=== PATIENT | male | born 1990 | race Caucasian/White ===

== ENCOUNTER 2017-10-31 22:59 | Inpatient (IN) | payer MEDICAID, OTHER ==
[~2017-10-31] VITALS: Ht 188 cm; Wt 189.7 kg
[2017-11-01] VITALS (8 sets, daily range): BP systolic 113–140; BP diastolic 62–85; PULSE 90–100; RESP 17–25; TEMP 98.4; Ht 188 cm; Wt 189.7 kg
[2017-11-01] MEDS ORDERED: morphine 4 MG/ML VIAL IV STA (00:49)
[2017-11-01] MEDS ORDERED: ONDANSETRON 4 MG INJ IV STA (00:49)
[2017-11-01] MEDS ORDERED: SOD CHLORIDE 0.9% 1,000 ML IV STA (00:49)
[2017-11-01 01:27] LABS: ABNORMAL IP MESSAGE 1; BASOPHILS % 0.1 % (0.0-2.0); EOSINOPHILS % 0.1 % (0.0-7.0); HEMATOCRIT 25.4 % (42.0-52.0); LYMPHOCYTES % 15.7 % (15.0-51.0); MEAN CORPUSCULAR HEMOGLOBIN 17.7 pg (29.0-33.0); MEAN CORPUSCULAR HGB CONC 26.8 g/dl (32.0-37.0); MEAN PLATELET VOLUME 10.6 fl (7.4-10.4); MONOCYTE # 1.2 10^3/ul (0.3-0.9); MONOCYTES % 9.8 % (0.0-11.0); NEUTROPHIL # 9.4 10^3/ul (1.6-7.5); NEUTROPHILS % 73.8 % (39.0-77.0); NUCLEATED RED BLOOD CELLS # 0.2 10^3/ul (0.0-0.0); NUCLEATED RED BLOOD CELLS% 1.5 /100WBC (0.0-0.0); PLATELET COUNT 334 10^3/UL (140-415); POSITIVE DIFF @See below; RED BLOOD COUNT 3.85 10^6/ul (4.70-6.10); RED CELL DISTRIBUTION WIDTH 20.5 % (11.5-14.5); WHITE BLOOD COUNT 12.7 10^3/ul (4.8-10.8)
[2017-11-01 01:50] LABS: ALBUMIN/GLOBULIN RATIO 1.02; BILIRUBIN,INDIRECT 0.7 mg/dl (0-1.1); BILIRUBIN,TOTAL 0.7 mg/dl (0.2-1.3); CALCIUM 9.5 mg/dl (8.4-10.2); CREATININE 0.94 mg/dl (0.61-1.24); POTASSIUM 4.1 mmol/L (3.5-5.1); TOTAL PROTEIN 7.9 g/dl (6.1-8.1)
[2017-11-01 02:02] LABS: HEMOGLOBIN 6.8 g/dl (14.0-18.0)
[2017-11-01 02:03] LABS: PATH REVIEW? YES
[2017-11-01] MEDS ORDERED: HYDROmorphONE 1 MG/ML SYG IV STA (03:30)
--- NOTE | 2017-11-01 03:36 | RADRPT ---
PROCEDURE: CT of the abdomen and pelvis without contrast CLINICAL INDICATION: Abdominal pain. TECHNIQUE: Spiral CT images through the abdomen and pelvis without the use of oral and without the use of intravenous contrast. The administered radiation dose is CTDI 23.85 and DLP 1775.21. One or more of the following dose reduction techniques were used: automated exposure control, adjustment o f the mA and/or kV according to patient size, or use of iterative reconstruction technique. DICOM im ages are available. COMPARISON: None FINDINGS: The study is limited by lack of intravenous contrast. Lower thorax: Slight dependent atalectasis of the lung bases is seen.. Liver: The liver is enlarged, measuring 24 cm in length. There is diffuse hepatic steatosis.. Biliary: Probable vicarious contrast excretion into the gallbladder. No definite radiopaque stones.. . No biliary ductal dilatation is seen. Pancreas: Unremarkable. No focal mass or inflammatory process. Spleen: The spleen is unremarkable in appearance Adrenal glands: Unremarkable in appearance. No focal nodule.. Genitourinary: No hydronephrosis or renal calculi are seen.. Contrast material is seen in the urinar y bladder, presumably from an outside study. No prior studies from this institution are seen.. Gastrointestinal Tract: There is no evidence for bowel obstruction, free air, or abscess. The appen melvi is likely surgically absent. Suture line is seen in the medial cecum.. Lymph nodes: No adenopathy is seen... Vascular structures: The aorta and mesenteric vessels are unremarkable.. Peritoneal cavity: Unremarkable mesentery and peritoneum.. No mass, edema, or ascites. Reproductive Organs: Unremarkable in appearance.. Musculoskeletal: Minimal endplate irregularities.. IMPRESSION: Hepatomegaly with diffuse hepatic steatosis. Probable vicarious contrast excretion into the gallbladder and residual contrast in the urinary blad flavio presumably from an outside study.. RPTAT: HLBE Physician Ulices Date Time Electronically viewed and signed by Physician Ulices on 11/01/2017 03:36 LE/
[2017-11-01] MEDS ORDERED: PANTOPRAZOLE 40 MG INJ IV ONE (04:00)
[2017-11-01 04:04] LABS: ANISOCYTOSIS 3+ (0-0); EOSINOPHILS % (M) 1 % (0-7); ERYTHROBLAST% (NRBC) (M) 3 % (0-0); GIANT THROMBO% (M) 6 % (0-0); HYPOCHROMASIA 2+ (0-0); MICROCYTOSIS 3+ (0-0); MONOCYTES % (M) 6 % (0-11); MYELOCYTES % (M) 1 % (0-0); OVALOCYTES 1+ (0-0); PLATELET ESTIMATE NORMAL; POIKILOCYTOSIS 2+ (0-0); POLYCHROMASIA 3+ (0-0); PROMYELOCYTES #M 0.6 10^3/ul (0-0); PROMYELOCYTES % (M) 5 % (0-0); STOMATOCYTES 1+ (0-0)
--- NOTE | 2017-11-01 05:35 | ERD ---
ER Documentation Chief Complaint Chief Complaint LUQ pain x1day. +n/v. heavy drinker. +SOB HPI This is 25 mL left lower quadrant pain for 1 day. He has had nausea and vomiting. 4-5 episodes of vomiting nonbilious nonbloody. Patient was a seen at [facility] earlier today and discharged home. Patient admits to drinking alcohol. Denies any fevers or chills. Denies any other current issues. ROS All systems reviewed and are negative except as per history of present illness. Allergies Allergies: Coded Allergies: No Known Allergy (Unverified , 10/31/17) PMhx/Soc Medical and Surgical Hx: pt denies Surgical Hx History of Surgery: No Anesthesia Reaction: No Hx Neurological Disorder: No Hx Respiratory Disorders: No Hx Cardiac Disorders: No Hx Psychiatric Problems: No Hx Miscellaneous Medical Probl: No Hx Alcohol Use: Yes (HEAVY) Hx Substance Use: Yes (POT) Hx Tobacco Use: No Smoking Status: Current every day smoker Physical Exam Vitals Vital Signs Date Time Temp Pulse Resp B/P Pulse Ox O2 Delivery O2 Flow Rate FiO2 11/01/17 03:43 97.8 82 22 145/60 100 Nasal Cannula 2.0 11/01/17 00:47 97.9 70 24 160/84 100 Room Air 10/31/17 23:30 97.9 117 24 155/98 99 Physical Exam Const: [] Head: Atraumatic Eyes: Normal Conjunctiva ENT: Normal External Ears, Nose and Mouth. Neck: Full range of motion..~ No meningismus. Resp: Clear to auscultation bilaterally Cardio: Regular rate and rhythm, no murmurs Abd: Soft, non tender, non distended. Normal bowel sounds Skin: No petechiae or rashes Back: No midline or flank tenderness Ext: No cyanosis, or edema Neur: Awake and alert Psych: Normal Mood and Affect Result Diagram: 11/01/17 01011/01/17 0100 Results 24 hrs Laboratory Tests Test 11/01/17 01:00 White Blood Count 12.710^3/ul Red Blood Count 3.8510^6/ul Hemoglobin 6.8g/dl Hematocrit 25.4% Mean Corpuscular Volume 66.0fl Mean Corpuscular Hemoglobin 17.7pg Mean Corpuscular Hemoglobin Concent 26.8g/dl Red Cell Distribution Width 20.5% Platelet Count 51229^3/UL Mean Platelet Volume 10.6fl Neutrophils % 73.8% Segmented Neutrophils % (Manual) 74% Lymphocytes % 15.7% Lymphocytes % (Manual) 13% Monocytes % 9.8% Monocytes % (Manual) 6% Eosinophils % 0.1% Eosinophils % (Manual) 1% Basophils % 0.1% Myelocytes % (Manual) 1% Promyelocytes % (Manual) 5% Nucleated Red Blood Cells % 3% Neutrophils # 9.410^3/ul Absolute Lymphocytes (Manual) 1.610^3/ul Lymphocytes # 2.010^3/ul Monocytes # 1.210^3/ul Absolute Monocytes (Manual) 0.710^3/ul Eosinophils # 0.010^3/ul Basophils # 0.010^3/ul Myelocytes # 0.110^3/ul Promyelocytes # 0.610^3/ul Nucleated Red Blood Cells # 0.210^3/ul Pathologist Review (Hematology) YES Platelet Estimate NORMAL Giant Platelets 6% Polychromasia 3+ Hypochromasia 2+ Poikilocytosis 2+ Anisocytosis 3+ Microcytosis 3+ Ovalocytes 1+ Stomatocytes 1+ Sodium Level 141mmol/L Potassium Level 4.1mmol/L Chloride Level 103mmol/L Carbon Dioxide Level 29mmol/L Anion Gap 13 Blood Urea Nitrogen 12mg/dl Creatinine 0.94mg/dl Glucose Level 137mg/dl Calcium Level 9.5mg/dl Total Bilirubin 0.7mg/dl Direct Bilirubin 0.00mg/dl Indirect Bilirubin 0.7mg/dl Aspartate Amino Transf (AST/SGOT) 54IU/L Alanine Aminotransferase (ALT/SGPT) 70IU/L Alkaline Phosphatase 120IU/L Total Protein 7.9g/dl Albumin 4.0g/dl Globulin 3.90g/dl Albumin/Globulin Ratio 1.02 Lipase 129U/L Current Medications Medications (Trade) Dose Ordered Sig/Lorelei Route PRN Reason Start Time Stop Time Status Last Admin Dose Admin Sodium Chloride (NS) 1,000 ml @ 1,000 mls/hr Q1H STAT IV 11/01/17 00:49 11/01/17 01:48 DC 11/01/17 00:55 Morphine Sulfate (morphine) 4 mg ONCE STAT IV 11/01/17 00:49 11/01/17 00:50 DC 11/01/17 00:56 Ondansetron HCl (Zofran Inj) 4 mg ONCE STAT IV 11/01/17 00:49 11/01/17 00:50 DC 11/01/17 00:55 Hydromorphone HCl (Dilaudid) 1 mg ONCE STAT IV 11/01/17 03:30 11/01/17 03:31 DC 11/01/17 03:36 Pantoprazole (Protonix Iv) 40 mg ONCE ONCE IV 11/01/17 04:00 11/01/17 04:01 DC 11/01/17 03:48 Procedures/MDM Medical decision-makin-year-old male with a low hemoglobin history chronic alcoholism. At this point the patient will be transfused and admitted for further evaluation and management. Spoke to Dr. camacho, exam the patient is service. Departure Diagnosis: Primary Impression: Anemia Anemia type: unspecified type Qualified Code: D64.9 - Anemia, unspecified type Condition: Serious LEANDER OKEEFE Nov 01, 2017 05:35
[2017-11-01] MEDS ORDERED: ALBUTEROL/IPRATROPIUM (NEB) 3 ML AMP HHN PRN (06:00)
[2017-11-01] MEDS ORDERED: NACL 0.9% 3 ML SYG IV SCH (06:00)
[2017-11-01] MEDS: morphine 2 MG INJ IV PRN ×4 (08:29→20:17)
[2017-11-01] MEDS: ONDANSETRON 4 MG INJ IV PRN ×2 (08:29→20:22)
[2017-11-01] MEDS: PANTOPRAZOLE 40 MG INJ IV SCH ×2 (08:29→20:17)
--- NOTE | 2017-11-01 09:36 | HP ---
Date/Time of Note Date/Time of Note DATE: 11/01/17 TIME: 09:31 Assessment/Plan VTE Prophylaxis VTE Prophylaxis Intervention: SCD's Assessment/Plan Assessment/Plan 1. Severe anemia, from diuretic effect of alcohol versus the resulting liver disease -Transfuse PRBCs -GI consult -Iron panel, ferritin and FOBT 2. History of alcohol abuse -Abstinence from alcohol is reinforced 3. Obesity, with a BMI of greater than 50 -Weight reduction advised HPI/ROS Admit Date/Time Admit Date/Time Nov 01, 2017 at 03:43 Hx of Present Illness This is a 27-year-old obese male with a history of alcohol abuse who presented to the ER complaining of abdominal pain and vomiting. Patient has been drinking heavily almost on a daily basis and for the past few days has been having a progressively worsening diffuse abdominal pain and vomiting, described as nonbloody nonbilious emesis. When he presented to the ER, he was found to be anemic with a hemoglobin of 6.8. Rest of the labs show a WBC of 12.7, AST 54, ALT 70. CT abdomen/pelvis showed fatty liver. PMH/Family/Social Social History Smoking Status: Current every day smoker Exam/Review of Systems Vital Signs Vitals Vital Signs Date Time Temp Pulse Resp B/P Pulse Ox O2 Delivery O2 Flow Rate FiO2 11/01/17 08:06 97.7 88 20 127/67 98 11/01/17 05:58 Nasal Cannula 2.0 Exam Constitutional: alert, distress, oriented, other (Obese) Head: atraumatic, normocephalic Eyes: EOMI, PERRL Respiratory: clear to auscultation, normal air movement Cardiovascular: nl pulses, regular rate and rhythm Gastrointestinal: soft, tender Extremities: normal pulses Labs Result Diagram: 11/01/179911/01/1799 Medications Medications Current Medications Ondansetron HCl (Zofran Inj) 4 mg Q6H PRN IV NAUSEA AND/OR VOMITING Last administered on 11/01/17 08:29; Admin Dose 4 MG; Start 11/01/17 at 06:00 Acetaminophen (Tylenol Tab) 650 mg Q6H PRN PO PAIN LEVEL 1-3 OR FEVER; Start 11/01/17 at 06:00 Morphine Sulfate (morphine) 2 mg Q4H PRN IV SEVERE PAIN LEVEL 7-10 Last administered on 11/01/17 08:29; Admin Dose 2 MG; Start 11/01/17 at 06:00 Pantoprazole (Protonix Iv) 40 mg Q12 IV Last administered on 11/01/17 08:29; Admin Dose 40 MG; Start 11/01/17 at 09:00 LEANDER CRUZ MD Nov 01, 2017 09:36
[2017-11-01 09:57] LABS: HEMATOCRIT 23.4 % (42.0-52.0)
[2017-11-01 10:01] LABS: HEMOGLOBIN 6.5 g/dl (14.0-18.0)
[2017-11-01 10:15] LABS: IRON 14 ug/dl (35-150)
[2017-11-01 10:27] LABS: TOTAL IRON BINDING CAPACITY 440 ug/dl (241-421)
--- NOTE | 2017-11-01 11:40 | QN ---
Documentation Comment Examined patient at bedside. Patient denied any hematemesis, hematochezia, melena, hemoptysis or hematuria. He reported having nausea and vomiting prior to admission and was nonbilious and nonbloody. Patient continued to have left upper quadrant abdominal pain. He reported no association with eating. Currently he is getting transfused 2 units. We are going to order serial H&H every 12 hours. Patient with low iron and will treat with IV iron replacement. We will also request gastroenterology consultation as patient could benefit from endoscopic evaluation. Patient will be continued on empiric PPI regimen. If GI workup negative for acute anemia, will stabilize hemoglobin with blood transfusion and iron replacement and will refer patient for outpatient hematology eval for further anemia workup. Plan of care updated with the patient and he is in agreement with the current plan. Patient was seen in collaboration with . HECTOR BETH NP Nov 01, 2017 11:40
[2017-11-01] MEDS ORDERED: HYDROCODONE/APAP (5/325) TAB PO ONE (12:00)
--- NOTE | 2017-11-01 12:22 | CONS ---
Date/Time of Note Date/Time of Note DATE: 11/01/17 TIME: 12:03 Assessment/Plan Assessment/Plan Chief Complaint/Hosp Course :Summary Assessment and Plan: Assessment: Severe TODD anemia History of alcohol abuse Obesity Plan: Iron panel, ferritin and FOBT-ordered EGD today Keep npo Endoscopy - risks/benefits/alternatives/indications of procedure and sedation/ anesthesia discussed with patient who states understading and gives informed consent to proceed. PARQ held and questions were answered.] Patient seen in collaboration with Dr. Tai Problems: Consultation Date/Type/Reason Admit Date/Time Nov 01, 2017 at 03:43 Date of Consultation: Nov 01, 2017 Type of Consultation: GI Reason for Consultation Severe anemia Hx of Present Illness This is a 27-year-old male with past medical history of alcohol abuse (drinks x3 25oz beer daily) and obesity, presenting to the ER with weakness vomiting, and abd pain. Initial evaluation hemoglobin found to be 6.8, MCV 66, MCH 17.7, WBCs 12.7, creatinine 0.94, lipase 129, AST 54, ALT 70. CT abdomen pelvis was obtained showing hepatomegaly with diffuse hepatic steatosis, and probable vicarious contrast excretion into the gallbladder and residual contrast in the urinary bladder presumably from an outside study. He does note he went to [facility] yesterday and was released. 4 months ago patient was seen at [facility] for "not feeling well" EGD and colonoscopy were completed at that time, per patient both negative, however, patient does not seem reliable source in regards to results of previous tests. He currently denies any nausea/vomiting, hematemesis, hematochezia, change in bowel habits, dysphagia, or pyrosis. Patient does complain of left upper quadrant pain described as an ache mild to moderate in nature. Iron studies show iron deficiency anemia, stool for OB has been ordered currently pending. With current presentation we will plan for EGD today, patient is to remain n.p.o., plan discussed with patient who is in agreement. Patient has not eaten since 8: 30 am. Past Medical History Medical History: other (Obesity, EtOH abuse) Past Surgical History Past Surgical Hx: appendectomy Social History Alcohol Use: heavy Drug Use: marijuana Exam/Review of Systems Vital Signs Vitals Vital Signs Date Time Temp Pulse Resp B/P Pulse Ox O2 Delivery O2 Flow Rate FiO2 11/01/17 08:06 97.7 88 20 127/67 98 11/01/17 05:58 Nasal Cannula 2.0 Exam PHYSICAL EXAMINATION: GENERAL: Well developed, well nourished, alert & oriented x 3, in no acute distress SKIN: No lesions, no stigmata chronic liver disease, no evidence of bleeding diathesis LYMPHATIC: No palpable lymphadenopathy. HEAD: Normocephalic, atraumatic, no tenderness. EYES: Pupils equal reactive to light and accommodation, full extraocular movements, sclera clear, non-icteric, no discharge. EARS/NOSE AND THROAT: Ears normal, nose normal, oropharynx normal, oral membranes well hydrated without lesions. NECK: Supple, no masses, thyroid normal, JVP within normal limits, carotids normal without bruits. CHEST: Inspection within normal limits. CARDIOVASCULAR: Heart: Regular rate and rhythm, no murmurs, gallops or rubs. Peripheral pulses present within normal limits, no cyanosis, clubbing or edemas. No pulsatile abdominal mass RESPIRATORY: Lungs clear to auscultation and percussion, no wheezing, no rubs GASTROINTESTINAL AND LIVER: Abdomen: Soft, tenderness RUQ, obese, no hernias, no masses, no organomegaly, no ascites, no guarding, no rebound tenderness, normoactive bowel sounds. Rectal: Deferred. GENITOURINARY: Male genitalia within normal limits. EXTREMITIES: No cyanosis, clubbing or edema. Results Result Diagram: 11/01/17 0933 11/01/17 0100 Results 24 hrs Laboratory Tests Test 11/01/17 01:00 11/01/17 09:33 White Blood Count 12.7 H Red Blood Count 3.85 L Hemoglobin 6.8 *L 6.5 *L Hematocrit 25.4 L 23.4 L Mean Corpuscular Volume 66.0 L Mean Corpuscular Hemoglobin 17.7 L Mean Corpuscular Hemoglobin Concent 26.8 L Red Cell Distribution Width 20.5 H Platelet Count 334 Mean Platelet Volume 10.6 H Neutrophils % 73.8 Segmented Neutrophils % (Manual) 74 Lymphocytes % 15.7 Lymphocytes % (Manual) 13 L Monocytes % 9.8 Monocytes % (Manual) 6 Eosinophils % 0.1 Eosinophils % (Manual) 1 Basophils % 0.1 Myelocytes % (Manual) 1 H Promyelocytes % (Manual) 5 H Nucleated Red Blood Cells % 3 H Neutrophils # 9.4 H Absolute Lymphocytes (Manual) 1.6 Lymphocytes # 2.0 Monocytes # 1.2 H Absolute Monocytes (Manual) 0.7 Eosinophils # 0.0 Basophils # 0.0 Myelocytes # 0.1 H Promyelocytes # 0.6 H Nucleated Red Blood Cells # 0.2 H Pathologist Review (Hematology) YES Platelet Estimate NORMAL Giant Platelets 6 H Polychromasia 3+ Hypochromasia 2+ Poikilocytosis 2+ Anisocytosis 3+ Microcytosis 3+ Ovalocytes 1+ Stomatocytes 1+ Sodium Level 141 Potassium Level 4.1 Chloride Level 103 Carbon Dioxide Level 29 Anion Gap 13 Blood Urea Nitrogen 12 Creatinine 0.94 Glucose Level 137 Calcium Level 9.5 Total Bilirubin 0.7 Direct Bilirubin 0.00 Indirect Bilirubin 0.7 Aspartate Amino Transf (AST/SGOT) 54 H Alanine Aminotransferase (ALT/SGPT) 70 H Alkaline Phosphatase 120 Total Protein 7.9 Albumin 4.0 Globulin 3.90 H Albumin/Globulin Ratio 1.02 Lipase 129 Iron Level 14 L Total Iron Binding Capacity 440 H Percent Iron Saturation 3 L Ferritin 4.4 L Medications Medications Current Medications Ondansetron HCl (Zofran Inj) 4 mg Q6H PRN IV NAUSEA AND/OR VOMITING Last administered on 11/01/17 08:29; Admin Dose 4 MG; Start 11/01/17 at 06:00 Acetaminophen (Tylenol Tab) 650 mg Q6H PRN PO PAIN LEVEL 1-3 OR FEVER; Start 11/01/17 at 06:00 Morphine Sulfate (morphine) 2 mg Q4H PRN IV SEVERE PAIN LEVEL 7-10 Last administered on 11/01/17 08:29; Admin Dose 2 MG; Start 11/01/17 at 06:00 Pantoprazole (Protonix Iv) 40 mg Q12 IV Last administered on 11/01/17 08:29; Admin Dose 40 MG; Start 11/01/17 at 09:00 Influenza Virus Vaccine 0.5 ml 0.5 ml ONCE ONCE IM* ; Start 11/01/17 at 14:00; Stop 11/01/17 at 14:01 Ferric Sodium Gluconate Complex/ Sodium Chloride (Ferrlecit/NS) 110 ml @ 110 mls/hr Q24H IVPB ; Start 11/01/17 at 12:30; Stop 11/05/17 at 13:29 Copies To: CC: TORRI TAI MD, VICTORIA Nov 01, 2017 12:13
[2017-11-01] MEDS: SOD FERRIC GLUC COMPLX 125 MG in SOD CHLORIDE 0.9% 100 ML IVPB SCH (13:53)
[2017-11-01] MEDS ORDERED: INFLUENZA VIRUS VACCINE 0.5 ML SYG IM* ONE (14:00)
--- NOTE | 2017-11-01 15:43 | RADRPT ---
PROCEDURE: KUB CLINICAL INDICATION: Abdominal pain TECHNIQUE: One-view COMPARISON: None . FINDINGS: Nonspecific bowel gas pattern with moderate stool seen in the rectosigmoid colon and distal descendi ng colon. No air-fluid levels noted. IMPRESSION: Nonspecific bowel gas pattern. RPTAT: AAOO Physician Rob Date Time Electronically viewed and signed by Howard Bo Physician on 11/01/2017 15:43 MB/
[2017-11-01 17:08] LABS: PATH REVIEW CH
--- NOTE | 2017-11-01 18:05 | HPN ---
Date/Time of Note Date/Time of Note DATE: 11/01/17 TIME: 18:05 Interval H&P Admission Note Pt. seen H&P reviewed: No system changes TORRI BURNHAM MD Nov 01, 2017 18:05
[2017-11-01] MEDS ORDERED: LIDOCAINE 2% (SDV) 5 ML INJ ONE (18:13)
[2017-11-01] MEDS ORDERED: PROPOFOL 40 ML ONE (18:13)
[2017-11-01 18:21] LABS: ADD UMIC YES; UR ASCORBIC ACID NEGATIVE (NEGATIVE); UR BILIRUBIN (Dip) NEGATIVE (NEGATIVE); UR BLOOD (Dip) NEGATIVE (NEGATIVE); UR CLARITY CLEAR (CLEAR); UR COLOR YELLOW (YELLOW); UR GLUCOSE (Dip) NEGATIVE (NEGATIVE); UR KETONES (Dip) TRACE mg/dL (NEGATIVE); UR LEUKOCYTE ESTERASE (Dip) 1+ Leu/ul (NEGATIVE); UR MUCUS FEW /HPF (NONE SEEN); UR NITRITE (Dip) NEGATIVE (NEGATIVE); UR RBC 4 /HPF (0-5); UR SPECIFIC GRAVITY (Dip) 1.023 (1.003-1.030); UR SQUAMOUS EPITHELIAL CELL FEW /HPF (FEW); UR TOTAL PROTEIN (Dip) NEGATIVE (NEGATIVE); UR UROBILINOGEN (Dip) NEGATIVE (NEGATIVE)
--- NOTE | 2017-11-01 18:38 | OPPN ---
Date/Time of Note Date/Time of Note DATE: 11/01/17 TIME: 18:35 Proc Note GI Procedure Date 11/01/17 Indication: other (Anemia/abdominal pain) Pre-procedure Diagnosis Anemia/abdominal pain/alcohol abuse Post-procedure Diagnosis Impression: Severe erosive esophagitis No significant esophageal varices Otherwise normal EGD Plan: Continue Protonix 40 mg twice daily Add Reglan 10 mg 4 times daily Monitor H&H transfuse as necessary for hemoglobin less than 7.5 Abstinence, weight loss . Procedure Performed: Endoscopy Surgeon TORRI BURNHAM MD See signature line Windows Server Engineer none Anesthesia Type: MAC Anesthesiologist: RUDDY WILLIAMSON MD Tourniquet Time none EBL none Transfusion required none Biopsy 1: none Grafts/Implants none Tubes/Drains none Complication(s) none Disposition: PACU Procedure Description After informed consent, with the patient/relatives understanding the procedure, its indications, potential risks and complications, including but not limited to : allergic reaction, bleeding, perforation or infection, and after all pertinent questions were answered to the patients satisfaction, the patient/ relatives signed witnessed informed consent. Following this, premedication was administered slowly IV push under careful cardiovascular and respiratory monitoring with pulse oximetry, automatic blood pressure, and hall monitor. Once the sedative effect was achieved the patient was place in the left lateral decubitus, the panendoscope was introduced and advanced under visual control. Careful examination of the upper gastrointestinal tract, both on insertion as well as withdrawal of the instrument disclosing the following findings: ESOPHAGUS: the mucosa of the entire esophagus was carefully examined and showed the following findings: There is severe erythema, edema as well as erosion of the mucosa of the distal esophagus. Otherwise the mucosa appears within normal limits. There is no evidence of varices, neoplasm, or stricture. No Hiatal Hernia identified. STOMACH: Upon entrance to the stomach air was insufflated, the gastric byrd distended normally. The mucosa of the fundus, body and antrum of the stomach was carefully examined both head-on and on retroflexion, and showed the following findings: the mucosa appears within normal limits with no abnormalities. There is no evidence of gastritis, ulcers or neoplasm. PYLORUS: The pylorus was carefully examined and showed the following findings: the pylorus appears patent and within normal limits, with no evidence of gastric outlet obstruction. DUODENUM: The duodenal mucosa was carefully examined in the duodenal bulb as well as the second portion of the duodenum and showed the following findings: the mucosa appears unremarkable with no evidence of duodenitis, ulcer or neoplasm. Copies To: CC: TORRI BURNHAM MD, MORDO MD Nov 01, 2017 18:38
[2017-11-01] MEDS: METOCLOPRAMIDE 10 MG INJ IV SCH (19:03)
[2017-11-01] MEDS ORDERED: PHENYLephrine (100 MCG/ML) 5ML SYG ONE (19:07)
[2017-11-01] MEDS: GUAIFENESIN/CODEINE 5ML CUP PO PRN (22:36)
[2017-11-01 22:42] LABS: HEMOGLOBIN 7.1 g/dl (14.0-18.0)
[2017-11-02] VITALS (11 sets, daily range): BP systolic 130–149; BP diastolic 63–80; PULSE 85–112; RESP 16–20
[2017-11-02] MEDS: HYDROCODONE/APAP (10/325) TAB PO PRN (00:14)
[2017-11-02] MEDS: METOCLOPRAMIDE 10 MG INJ IV SCH ×5 (00:14→23:47)
[2017-11-02] MEDS: morphine 2 MG INJ IV PRN ×5 (02:40→22:34)
[2017-11-02] MEDS: GUAIFENESIN/CODEINE 5ML CUP PO PRN ×4 (03:22→23:47)
[2017-11-02] MEDS: PANTOPRAZOLE 40 MG INJ IV SCH ×2 (08:18→20:56)
[2017-11-02] MEDS: ACETAMINOPHEN 325 MG TAB PO PRN ×2 (08:19→20:56)
[2017-11-02] MEDS: ONDANSETRON 4 MG INJ IV PRN (08:30)
--- NOTE | 2017-11-02 09:23 | PN ---
Date/Time of Note Date/Time of Note DATE: 11/02/17 TIME: 09:18 Assessment/Plan VTE Prophylaxis VTE Prophylaxis Intervention: SCD's Lines/Catheters IV C[facility]ter Type (from [facility] Saline Lock Urinary Cath still in place: No Assessment/Plan Chief Complaint/Hosp Course Assessment: Severe TODD anemia EGD 11/01/17 Impression: Severe erosive esophagitis No significant esophageal varices Otherwise normal EGD History of alcohol abuse Obesity Plan: Continue Protonix 40 mg twice daily Continue Reglan 10 mg 4 times daily Monitor H&H transfuse as necessary for hemoglobin less than 7.5 Abstinence, weight loss Pt continue to c/o unexplained LUQ pain will repeat ct abd/pelvis with contrast and check retic count Patient seen in collaboration with DR. Tai Subjective: Course reviewed with nursing staff Patient interviewed and examined All labs, imaging and other results reviewed The patient currently stable, Hgb this am is currently pending, Hgb from last night with some improvement. Pt did have a reaction after 2 unit of blood last night. Will continue to monitor H/H Pt continues to c/o LUQ with unknown etiology, will re-order ct abd/pelvis with contrast. PHYSICAL EXAMINATION: GENERAL: Morbidly obese, alert & oriented x 3, in no acute distress SKIN: No lesions, no stigmata chronic liver disease, no evidence of bleeding diathesis LYMPHATIC: No palpable lymphadenopathy. HEAD: Normocephalic, atraumatic, no tenderness. EYES: Pupils equal reactive to light and accommodation, full extraocular movements, sclera clear, non-icteric, no discharge. EARS/NOSE AND THROAT: Ears normal, nose normal, oropharynx normal, oral membranes well hydrated without lesions. NECK: Supple, no masses, thyroid normal, . CHEST: Inspection within normal limits. CARDIOVASCULAR: Heart: Regular rate and rhythm, GASTROINTESTINAL AND LIVER: Abdomen: Soft, tenderness, non-distended, no hernias, no masses, no organomegaly, no ascites, no guarding, no rebound tenderness, normoactive bowel sounds. Rectal: Deferred. GENITOURINARY: Male genitalia within normal limits. Problems: Exam/Review of Systems Vital Signs Vitals Vital Signs Date Time Temp Pulse Resp B/P Pulse Ox O2 Delivery O2 Flow Rate FiO2 11/02/17 07:50 102.3 103 20 138/65 97 11/02/17 03:15 Room Air 11/01/17 05:58 2.0 Intake and Output 11/01/17 11/01/17 11/02/17 14:59 22:59 06:59 Intake Total 930 ml 850 ml Balance 930 ml 850 ml Results Result Diagram: 11/01/178 11/01/17 0100 Results 24 hrs Laboratory Tests Test 11/01/17 09:33 11/01/17 17:00 11/01/17 21:58 11/02/17 05:29 Hemoglobin 6.5 *L 7.1 L Hematocrit 23.4 L 26.0 L Iron Level 14 L Total Iron Binding Capacity 440 H Percent Iron Saturation 3 L Ferritin 4.4 L Urine Color YELLOW Urine Clarity CLEAR Urine pH 6.0 Urine Specific [place] 1.023 Urine Ketones TRACE A Urine Nitrite NEGATIVE Urine Bilirubin NEGATIVE Urine Urobilinogen NEGATIVE Urine Leukocyte Esterase 1+ H Urine Microscopic RBC 4 Urine Microscopic WBC 28 H Urine Squamous Epithelial Cells FEW Urine Mucus FEW A Urine Hemoglobin NEGATIVE Urine Glucose NEGATIVE Urine Total Protein NEGATIVE Lab Scanned Report BLOOD TRANSFUSION Test 11/02/17 08:54 White Blood Count Pending Red Blood Count Pending Hemoglobin Pending Hematocrit Pending Mean Corpuscular Volume Pending Mean Corpuscular Hemoglobin Pending Mean Corpuscular Hemoglobin Concent Pending Red Cell Distribution Width Pending Platelet Count Pending Mean Platelet Volume Pending Medications Medications Current Medications Ondansetron HCl (Zofran Inj) 4 mg Q6H PRN IV NAUSEA AND/OR VOMITING Last administered on 11/02/17 08:30; Admin Dose 4 MG; Start 11/01/17 at 06:00 Acetaminophen (Tylenol Tab) 650 mg Q6H PRN PO PAIN LEVEL 1-3 OR FEVER Last administered on 11/02/17 08:19; Admin Dose 650 MG; Start 11/01/17 at 06:00 Pantoprazole 40 mg 40 mg Q12 IV Last administered on 11/02/17 08:18; Admin Dose 40 MG; Start 11/01/17 at 09:00 Ferric Sodium Gluconate Complex/ Sodium Chloride (Ferrlecit/NS) 110 ml @ 110 mls/hr Q24H IVPB Last administered on 11/01/17 13:53; Admin Dose 110 MLS/HR; Start 11/01/17 at 12:30; Stop 11/05/17 at 13:29 Metoclopramide HCl (Reglan) 10 mg Q6 IV Last administered on 11/02/17 06:30; Admin Dose 10 MG; Start 11/01/17 at 19:00 Morphine Sulfate (morphine) 4 mg Q4H PRN IV SEVERE PAIN LEVEL 7-10 Last administered on 11/02/17 08:04; Admin Dose 4 MG; Start 11/01/17 at 20:00 Acetaminophen/ Hydrocodone Bitart ([place] (10/325)) 1 tab Q6H PRN PO PAIN Last administered on 11/02/17 00:14; Admin Dose 1 TAB; Start 11/01/17 at 20:30 Guaifenesin/ Codeine Phosphate (Robitussin Ac Liquid Cup) 10 ml Q4H PRN PO COUGH Last administered on 11/02/17 03:22; Admin Dose 10 ML; Start 11/01/17 at 20:30 EVANGELINA PRAKASH Nov 02, 2017 09:23
[2017-11-02 09:28] LABS: ABNORMAL IP MESSAGE 1; BASOPHILS % 0.2 % (0.0-2.0); EOSINOPHILS % 0.2 % (0.0-7.0); HEMATOCRIT 27.2 % (42.0-52.0); HEMOGLOBIN 7.7 g/dl (14.0-18.0); LYMPHOCYTES # 1.6 10^3/ul (0.8-2.9); LYMPHOCYTES % 12.7 % (15.0-51.0); MEAN CORPUSCULAR HEMOGLOBIN 19.3 pg (29.0-33.0); MEAN CORPUSCULAR HGB CONC 28.3 g/dl (32.0-37.0); MEAN CORPUSCULAR VOLUME 68.2 fl (82.0-101.0); MEAN PLATELET VOLUME 10.1 fl (7.4-10.4); MONOCYTE # 1.2 10^3/ul (0.3-0.9); NUCLEATED RED BLOOD CELLS # 0.4 10^3/ul (0.0-0.0); PLATELET COUNT 276 10^3/UL (140-415); POSITIVE DIFF @See below; RED BLOOD COUNT 3.99 10^6/ul (4.70-6.10); RED CELL DISTRIBUTION WIDTH 22.6 % (11.5-14.5); WHITE BLOOD COUNT 12.9 10^3/ul (4.8-10.8)
[2017-11-02 09:46] LABS: ALBUMIN 3.7 g/dl (3.3-4.9); ALBUMIN/GLOBULIN RATIO 0.97; BILIRUBIN,INDIRECT 0.7 mg/dl (0-1.1); BILIRUBIN,TOTAL 0.7 mg/dl (0.2-1.3); CREATININE 1.04 mg/dl (0.61-1.24); MAGNESIUM 1.7 mg/dl (1.7-2.5); PHOSPHORUS 2.8 mg/dl (2.5-4.9); POTASSIUM 3.8 mmol/L (3.5-5.1); TOTAL PROTEIN 7.5 g/dl (6.1-8.1)
[2017-11-02] MEDS ORDERED: BARIUM SULF 2% 450 ML BTL (BERRY SMOOTHIE) PO ONE (10:00)
[2017-11-02] MEDS ORDERED: BARIUM SULF 2% 450 ML BTL (BERRY SMOOTHIE) PO SCH (11:00)
[2017-11-02] MEDS ORDERED: ACETAMINOPHEN 325 MG TAB PO ONE (12:00)
[2017-11-02] MEDS ORDERED: DIPHENHYDRAMINE 50 MG INJ IV ONE (12:00)
--- NOTE | 2017-11-02 12:07 | PN ---
Date/Time of Note Date/Time of Note DATE: 11/02/17 TIME: 11:52 Assessment/Plan VTE Prophylaxis VTE Prophylaxis Intervention: ambulation, SCD's Lines/Catheters IV Catheter Type (from [facility]): Saline Lock Urinary Cath still in place: No Assessment/Plan Chief Complaint/Hosp Course 1. Acute iron deficient anemia requiring multiple blood transfusion. Hemoglobin 7.7 post 3 units PRBC. -Status post endoscopy with erosive esophagitis. -Continue to replete iron intravenously, Follow serial HCT. -Hematology consult as needed -F/u FOBT 2. Severe erosive esophagitis. -On PPI and Reglan. -Follow-up EGD pathology report to rule out Jeane esophagitis. 3. Morbid obesity. BMI 53.7. -Weight reduction advised. 4. Hepatic steatosis -Lifestyle changes advised. 5. Alcohol abuse. -Cessation advised. 6. Leukocytosis, mild. Likely secondary to esophagitis. -We will monitor. No need for antibiotics at this time. Prophylaxis: SCDs/PPI. Premedicate with Benadryl and Tylenol with transfusion. Patient is seen in collaboration with . Problems: Subjective 24 Hr Interval Summary Free Text/Dictation Patient received a total of 3 units PRBC. He also had temperature 102 with blood transfusion. There was no reported rashes or other issues. Exam/Review of Systems Vital Signs Vitals Vital Signs Date Time Temp Pulse Resp B/P Pulse Ox O2 Delivery O2 Flow Rate FiO2 11/02/17 07:50 102.3 103 20 138/65 97 11/02/17 03:15 Room Air 11/01/17 05:58 2.0 Intake and Output 11/01/17 11/01/17 11/02/17 15:00 23:00 07:00 Intake Total 110 ml 820 ml 850 ml Balance 110 ml 820 ml 850 ml Exam General: Morbidly obese male not in any acute distress . HEENT: Normocephalic, Atraumatic, No laceration or hematoma; Eyes: PEERL, Conjunctiva clear, Anicteric sclera Neck: Supple without any lymphadenopathy, nontender, no JVD, no carotid bruits, trachea midline, no thyromegaly Cardiac: S1, S2 auscultated, regular rhythm and rate, no mumurs or gallop Pulmonary: Normal respiratory effort. Chest clear to auscultation bilaterally, no adventitious breath sounds GI: Abdomen obese to inspection. With mild tenderness to left sided abdominal area mostly with coughing and moving. Otherwise soft, non tender, non- distended, no masses, no rebound tenderness or guarding. Bowel sounds active on all four quadrants Genitourinary: Deferred Extremities: No cyanosis, clubbing, or edema. Pulses [2+] bilaterally. Full ROM on all four extremities. No focal weakness appreciated. Neurologic: Alert to person, place, time, and situation. Affect appropriate, intact sensation. Skin: Clean,dry, and intact. No ecchymosis, no rashes, or lesions Results Result Diagram: 11/02/17 0854 11/02/17 0854 Results 24 hrs Laboratory Tests Test 11/01/17 17:00 11/01/17 21:58 11/02/17 05:29 11/02/17 08:54 Urine Color YELLOW Urine Clarity CLEAR Urine pH 6.0 Urine Specific [place] 1.023 Urine Ketones TRACE A Urine Nitrite NEGATIVE Urine Bilirubin NEGATIVE Urine Urobilinogen NEGATIVE Urine Leukocyte Esterase 1+ H Urine Microscopic RBC 4 Urine Microscopic WBC 28 H Urine Squamous Epithelial Cells FEW Urine Mucus FEW A Urine Hemoglobin NEGATIVE Urine Glucose NEGATIVE Urine Total Protein NEGATIVE Hemoglobin 7.1 L 7.7 L Hematocrit 26.0 L 27.2 L Lab Scanned Report BLOOD TRANSFUSION White Blood Count 12.9 H Red Blood Count 3.99 L Mean Corpuscular Volume 68.2 L Mean Corpuscular Hemoglobin 19.3 L Mean Corpuscular Hemoglobin Concent 28.3 L Red Cell Distribution Width 22.6 H Platelet Count 276 Mean Platelet Volume 10.1 Neutrophils % 77.0 Lymphocytes % 12.7 L Monocytes % 9.0 Eosinophils % 0.2 Basophils % 0.2 Nucleated Red Blood Cells % 3.0 H Neutrophils # 10.0 H Lymphocytes # 1.6 Monocytes # 1.2 H Eosinophils # 0.0 Basophils # 0.0 Nucleated Red Blood Cells # 0.4 H Sodium Level 138 Potassium Level 3.8 Chloride Level 99 Carbon Dioxide Level 30 Anion Gap 13 Blood Urea Nitrogen 10 Creatinine 1.04 Glucose Level 119 Calcium Level 9.0 Phosphorus Level 2.8 Magnesium Level 1.7 Total Bilirubin 0.7 Direct Bilirubin 0.00 Indirect Bilirubin 0.7 Aspartate Amino Transf (AST/SGOT) 49 H Alanine Aminotransferase (ALT/SGPT) 64 Alkaline Phosphatase 104 Total Protein 7.5 Albumin 3.7 Globulin 3.80 H Albumin/Globulin Ratio 0.97 Medications Medications Current Medications Ondansetron HCl (Zofran Inj) 4 mg Q6H PRN IV NAUSEA AND/OR VOMITING Last administered on 11/02/17 08:30; Admin Dose 4 MG; Start 11/01/17 at 06:00 Acetaminophen (Tylenol Tab) 650 mg Q6H PRN PO PAIN LEVEL 1-3 OR FEVER Last administered on 11/02/17 08:19; Admin Dose 650 MG; Start 11/01/17 at 06:00 Pantoprazole 40 mg 40 mg Q12 IV Last administered on 11/02/17 08:18; Admin Dose 40 MG; Start 11/01/17 at 09:00 Ferric Sodium Gluconate Complex/ Sodium Chloride (Ferrlecit/NS) 110 ml @ 110 mls/hr Q24H IVPB Last administered on 11/01/17 13:53; Admin Dose 110 MLS/HR; Start 11/01/17 at 12:30; Stop 11/05/17 at 13:29 Metoclopramide HCl (Reglan) 10 mg Q6 IV Last administered on 11/02/17 06:30; Admin Dose 10 MG; Start 11/01/17 at 19:00 Morphine Sulfate (morphine) 4 mg Q4H PRN IV SEVERE PAIN LEVEL 7-10 Last administered on 11/02/17 08:04; Admin Dose 4 MG; Start 11/01/17 at 20:00 Acetaminophen/ Hydrocodone Bitart ([place] (10/325)) 1 tab Q6H PRN PO PAIN Last administered on 11/02/17 00:14; Admin Dose 1 TAB; Start 11/01/17 at 20:30 Guaifenesin/ Codeine Phosphate (Robitussin Ac Liquid Cup) 10 ml Q4H PRN PO COUGH Last administered on 11/02/17 10:34; Admin Dose 10 ML; Start 11/01/17 at 20:30 HECTOR BETH NP Nov 02, 2017 12:02
[2017-11-02 12:09] LABS: POST-TRANSFUSION BILIRUBIN 0.5 mg/dl; PRETRANSFUSION BILIRUBIN 0.3 mg/dl
[2017-11-02 12:17] LABS: RETICULOCYTE COUNT % 1.9 % (0.5-1.5)
[2017-11-02 12:20] LABS: ADD UMIC YES; UR ASCORBIC ACID NEGATIVE (NEGATIVE); UR BILIRUBIN (Dip) NEGATIVE (NEGATIVE); UR BLOOD (Dip) NEGATIVE (NEGATIVE); UR CLARITY CLEAR (CLEAR); UR COLOR YELLOW (YELLOW); UR GLUCOSE (Dip) NEGATIVE (NEGATIVE); UR KETONES (Dip) TRACE mg/dL (NEGATIVE); UR LEUKOCYTE ESTERASE (Dip) TRACE Leu/ul (NEGATIVE); UR MUCUS FEW /HPF (NONE SEEN); UR NITRITE (Dip) NEGATIVE (NEGATIVE); UR RBC 1 /HPF (0-5); UR SPECIFIC GRAVITY (Dip) 1.021 (1.003-1.030); UR SQUAMOUS EPITHELIAL CELL FEW /HPF (FEW); UR TOTAL PROTEIN (Dip) NEGATIVE (NEGATIVE); UR UROBILINOGEN (Dip) 1+ mg/dL (NEGATIVE)
[2017-11-02] MEDS ORDERED: IOHEXOL 300MG/ML 150 ML BTL ONE (12:42)
[2017-11-02] MEDS ORDERED: SOD CHLORIDE 0.9% 100 ML ONE (12:42)
--- NOTE | 2017-11-02 13:36 | RADRPT ---
PROCEDURE: CT Abdomen and Pelvis with intravenous contrast. CLINICAL INDICATION: Left upper quadrant pain.. History of appendectomy. TECHNIQUE: CT scan of the abdomen and pelvis with intravenous contrast was performed on the multi- slice CT scanner. The patient was scanned following the uncomplicated intravenous administration of 100 cc of Omnipaque-300 contrast. Contrast infusion rate was decreased to small size of IV. Contras t also appears diluted due to patient body habitus. There is no evidence of contrast extravasation p er vascular ultrasound technologist. Coronal and sagittal reformatted images were obtained from the axial source imag es. Images were reviewed on a high-resolution PACS workstation. DICOM images are available. Total DLP = 1704.1 mGy-cm. CTDIvol = 25 mGy. One or more of the following dose reduction techniques were used: Automated exposure control. Adjustment of the mA and/or kV according to patient size. Use of iterative reconstruction technique. COMPARISON: 11/01/2017 FINDINGS: CT abdomen and pelvis: The lung bases are clear. The heart size is normal in size. The liver is enlarged and diffusely fa tty in density without focal mass or intrahepatic biliary dilatation. The spleen is normal in size and homogeneous in density. The pancreas as visualized is normal. The gallbladder shows no evide nce of stones or distension . The adrenal glands are normal. The kidneys are symmetrically unremar kable. No urolithiasis, obstructive uropathy, or solid mass lesion is seen. The stomach is partially collapsed, but is grossly unremarkable. The small bowels are unremarkable. The colon and rectum are normal.. No evidence of acute appendicitis or diverticulitis. The pelvic o rgans are normal. The bladder is normal. There is no abdominal or pelvic adenopathy, free fluid, ketty e air, mass or mesenteric inflammation. The aorta is normal in caliber and course. The osseous structures are intact. No osteolytic or osteo blastic lesions are identified. The soft tissues are within normal limits. Contrast appears to be diluted due to the patient's large body habitus limiting evaluation. IMPRESSION: 1. Hepatomegaly with diffuse steatosis. 2. Otherwise unremarkable limited contrast enhanced CT abdomen and pelvis without acute pathology identified. RPTAT: GG .Ish Amaya MD, Date Time Electronically viewed and signed by .Ish Amaya MD, on 11/02/2017 13:35 .L/
[2017-11-02] MEDS: SOD FERRIC GLUC COMPLX 125 MG in SOD CHLORIDE 0.9% 100 ML IVPB SCH (14:32)
--- NOTE | 2017-11-02 15:08 | CONS ---
Date/Time of Note Date/Time of Note DATE: 11/02/17 TIME: 14:53 Assessment/Plan Assessment/Plan Chief Complaint/Hosp Course #iron deficiency anemia -my suspicion is that patient's iron deficiency is related to his erosive esophagitis and recent GI bleed, even though currently there is not evidence of continued GI bleed. -he also has a component of hepatomegaly from chronic EtOH use that is contributing to his anemia -furthermore, heavy EtOH drinking will cause bone marrow suppression -agree with IV iron that has been given -pt has already been transfused 3 units of PRBcs. Can hold on the fourth and see what Hg is tomorrow prior to transfusing the 4th unit -given his young age, we do not want to miss a possible underlying bone marrow pathology. will order bone marrow bx at this time #Leukocytosis -likely related to underlying liver inflammation -bone marrow bx will help us ot r/o underlying leukemia #Alcoholism -pt should be referred to a rehab center A total of 50 minutes of face to face time was spent speaking with the patient, of which greater than 50% was spent in counseling and coordination of care and the detailed question and answer session. Problems: Consultation Date/Type/Reason Admit Date/Time Nov 01, 2017 at 03:43 Date of Consultation: Nov 02, 2017 Type of Consultation: hematology Reason for Consultation iron deficiency anemia Referring Provider: HECTOR BETH NP Hx of Present Illness This is a 27-year-old obese male with a history of heavy alcohol abuse who presented to the ER on 12omplaining of abdominal pain and vomiting. Patient has been drinking heavily on a daily basis prior to admission for almost 2 months. He states that 1-2 x a week he would binge drink 12-18 beers in a day. Pt states "beer is not alcohol" and should not cause any damage. On admission pt was found with a microcytic anemia with a Hg 6.8 and MCV of 66. Labs also revealed severe iron deficiency with a ferritin of 4 and iron saturation of 3%. Pt had and EGD that revealed severe erosive esophagitis. Stool ob was negative. We have been consulted for further work up of patient's anemia. CT of hte A/P was done with IV contrast which reveals Hepatomegaly with diffuse steatosis. Constitutional: no complaints Eyes: no complaints ENT: no complaints Respiratory: no complaints Cardiovascular: lightheadedness Gastrointestinal: decreased appetite, pain Genitourinary: no complaints Musculoskeletal: bone/joint pain Neurologic: no complaints Endocrine: no complaints Lymphatic: no complaints Psychological: depression, no complaints Past Medical History obesity alcoholism Medical History: other (Obesity, EtOH abuse) Past Surgical History Past Surgical Hx: appendectomy Family History Significant Family History: no pertinent family hx Social History Alcohol Use: heavy (daily for 2 mo, up to 18 beers a day) Smoking Status: Unknown if ever smoked Drug Use: marijuana Exam/Review of Systems Vital Signs Vitals Vital Signs Date Time Temp Pulse Resp B/P Pulse Ox O2 Delivery O2 Flow Rate FiO2 11/02/17 13:51 101.5 101 20 149/68 98 11/02/17 03:15 Room Air 11/01/17 05:58 2.0 Intake and Output 11/01/17 11/01/17 11/02/17 15:00 23:00 07:00 Intake Total 110 ml 820 ml 850 ml Balance 110 ml 820 ml 850 ml Exam Constitutional: alert, oriented Psych: no complaints Head: normocephalic Eyes: nl conjunctiva ENMT: nl external ears & nose, nl lips & teeth Neck: supple Respiratory: clear to auscultation, normal air movement Cardiovascular: regular rate and rhythm Gastrointestinal: soft Musculoskeletal: nl extremities to inspection, nl gait and stance Neurological: EXECUTIVE ADMINISTRATOR II-XII intact Results Result Diagram: 11/02/17 0854 11/02/17 0854 Results 24 hrs Laboratory Tests Test 11/01/17 17:00 11/01/17 21:58 11/02/17 05:29 11/02/17 08:05 Urine Color YELLOW YELLOW Urine Clarity CLEAR CLEAR Urine pH 6.0 6.0 Urine Specific [place] 1.023 1.021 Urine Ketones TRACE A TRACE A Urine Nitrite NEGATIVE NEGATIVE Urine Bilirubin NEGATIVE NEGATIVE Urine Urobilinogen NEGATIVE 1+ H Urine Leukocyte Esterase 1+ H TRACE A Urine Microscopic RBC 4 1 Urine Microscopic WBC 28 H 16 H Urine Squamous Epithelial Cells FEW FEW Urine Mucus FEW A FEW A Urine Hemoglobin NEGATIVE NEGATIVE Urine Glucose NEGATIVE NEGATIVE Urine Total Protein NEGATIVE NEGATIVE Hemoglobin 7.1 L Hematocrit 26.0 L Lab Scanned Report BLOOD TRANSFUSION Test 11/02/17 08:54 11/02/17 10:30 White Blood Count 12.9 H Red Blood Count 3.99 L Hemoglobin 7.7 L Hematocrit 27.2 L Mean Corpuscular Volume 68.2 L Mean Corpuscular Hemoglobin 19.3 L Mean Corpuscular Hemoglobin Concent 28.3 L Red Cell Distribution Width 22.6 H Platelet Count 276 Mean Platelet Volume 10.1 Neutrophils % 77.0 Lymphocytes % 12.7 L Monocytes % 9.0 Eosinophils % 0.2 Basophils % 0.2 Nucleated Red Blood Cells % 3.0 H Neutrophils # 10.0 H Lymphocytes # 1.6 Monocytes # 1.2 H Eosinophils # 0.0 Basophils # 0.0 Nucleated Red Blood Cells # 0.4 H Absolute Reticulocyte Count 0.079 Percent Reticulocyte Count 1.9 H Sodium Level 138 Potassium Level 3.8 Chloride Level 99 Carbon Dioxide Level 30 Anion Gap 13 Blood Urea Nitrogen 10 Creatinine 1.04 Glucose Level 119 Calcium Level 9.0 Phosphorus Level 2.8 Magnesium Level 1.7 Total Bilirubin 0.7 Direct Bilirubin 0.00 Indirect Bilirubin 0.7 Aspartate Amino Transf (AST/SGOT) 49 H Alanine Aminotransferase (ALT/SGPT) 64 Alkaline Phosphatase 104 Total Protein 7.5 Albumin 3.7 Globulin 3.80 H Albumin/Globulin Ratio 0.97 Stool Occult Blood NEGATIVE Medications Medications Current Medications Ondansetron HCl (Zofran Inj) 4 mg Q6H PRN IV NAUSEA AND/OR VOMITING Last administered on 11/02/17 08:30; Admin Dose 4 MG; Start 11/01/17 at 06:00 Acetaminophen (Tylenol Tab) 650 mg Q6H PRN PO PAIN LEVEL 1-3 OR FEVER Last administered on 11/02/17 08:19; Admin Dose 650 MG; Start 11/01/17 at 06:00 Pantoprazole 40 mg 40 mg Q12 IV Last administered on 11/02/17 08:18; Admin Dose 40 MG; Start 11/01/17 at 09:00 Ferric Sodium Gluconate Complex/ Sodium Chloride (Ferrlecit/NS) 110 ml @ 110 mls/hr Q24H IVPB Last administered on 11/02/17 14:32; Admin Dose 110 MLS/HR; Start 11/01/17 at 12:30; Stop 11/05/17 at 13:29 Metoclopramide HCl (Reglan) 10 mg Q6 IV Last administered on 11/02/17 12:23; Admin Dose 10 MG; Start 11/01/17 at 19:00 Morphine Sulfate (morphine) 4 mg Q4H PRN IV SEVERE PAIN LEVEL 7-10 Last administered on 11/02/17 12:23; Admin Dose 4 MG; Start 11/01/17 at 20:00 Acetaminophen/ Hydrocodone Bitart ([place] (10)) 1 tab Q6H PRN PO PAIN Last administered on 11/02/17 00:14; Admin Dose 1 TAB; Start 11/01/17 at 20:30 Guaifenesin/ Codeine Phosphate (Robitussin Ac Liquid Cup) 10 ml Q4H PRN PO COUGH Last administered on 11/02/17 10:34; Admin Dose 10 ML; Start 11/01/17 at 20:30 EBONY MCCORMICK M.D. Nov 02, 2017 15:07
[2017-11-02 16:43] LABS: HEMATOCRIT 26.9 % (42.0-52.0); HEMOGLOBIN 7.6 g/dl (14.0-18.0)
[2017-11-02 23:49] LABS: HEMATOCRIT 26.9 % (42.0-52.0); HEMOGLOBIN 7.7 g/dl (14.0-18.0)
[2017-11-03] VITALS (11 sets, daily range): BP systolic 122–143; BP diastolic 60–79; PULSE 67–98; RESP 15–22
[2017-11-03] MEDS: morphine 2 MG INJ IV PRN ×5 (02:42→22:40)
[2017-11-03] MEDS: METOCLOPRAMIDE 10 MG INJ IV SCH ×5 (05:21→23:55)
[2017-11-03 06:02] LABS: ABNORMAL IP MESSAGE 1; BASOPHILS % 0.2 % (0.0-2.0); EOSINOPHILS % 0.4 % (0.0-7.0); HEMATOCRIT 28.8 % (42.0-52.0); LYMPHOCYTES % 26.9 % (15.0-51.0); MEAN CORPUSCULAR HEMOGLOBIN 19.5 pg (29.0-33.0); MEAN CORPUSCULAR HGB CONC 27.8 g/dl (32.0-37.0); MEAN CORPUSCULAR VOLUME 70.1 fl (82.0-101.0); MEAN PLATELET VOLUME 10.5 fl (7.4-10.4); MONOCYTE # 1.5 10^3/ul (0.3-0.9); MONOCYTES % 13.6 % (0.0-11.0); NEUTROPHIL # 6.4 10^3/ul (1.6-7.5); NEUTROPHILS % 58.3 % (39.0-77.0); NUCLEATED RED BLOOD CELLS # 0.2 10^3/ul (0.0-0.0); NUCLEATED RED BLOOD CELLS% 1.5 /100WBC (0.0-0.0); PLATELET COUNT 240 10^3/UL (140-415); POSITIVE DIFF @See below; RED BLOOD COUNT 4.11 10^6/ul (4.70-6.10); RED CELL DISTRIBUTION WIDTH 23.3 % (11.5-14.5)
[2017-11-03 06:36] LABS: INR 1.12; PROTIME 14.6 Sec (11.9-14.9); PT RATIO 1.1
[2017-11-03 06:37] LABS: PARTIAL THROMBOPLASTIN TIME 26.8 Sec (25.0-35.0)
[2017-11-03 06:40] LABS: CALCIUM 8.8 mg/dl (8.4-10.2); POTASSIUM 3.8 mmol/L (3.5-5.1)
[2017-11-03] MEDS: PANTOPRAZOLE 40 MG INJ IV SCH ×2 (08:36→20:34)
--- NOTE | 2017-11-03 10:59 | PN ---
Date/Time of Note Date/Time of Note DATE: 11/03/17 TIME: 10:53 Assessment/Plan VTE Prophylaxis VTE Prophylaxis Intervention: ambulation Lines/Catheters IV [facility] Type (from [facility]): Saline Lock Urinary Cath still in place: No Assessment/Plan Chief Complaint/Hosp Course 1. Acute iron deficient anemia requiring multiple blood transfusion. Other contributing factors of anemia could be erosive esophagitis and patient's history of alcohol abuse. Status post 3 units PRBC with H&H 8.0/28.8. -Negative stool OB. Status post endoscopy with erosive esophagitis. -Hematology evaluation greatly appreciated. Recommendation is CT-guided bone marrow biopsy and to continue to replete iron intravenously. -Patient also had a recent colonoscopy done at [facility] which was negative per patient. We will try to obtain a copy. 2. Severe erosive esophagitis. -On PPI and Reglan. -Follow-up EGD pathology report to rule out Jeane esophagitis. 3. Morbid obesity. BMI 53.7. -Weight reduction advised. 4. Hepatic steatosis -Lifestyle changes advised. 5. Alcohol abuse. -Cessation advised. 6. Leukocytosis, mild. Likely secondary to esophagitis. -We will monitor. No need for antibiotics at this time. Prophylaxis: SCDs/PPI. Follow-up with bone marrow biopsy findings. Alternatively, patient can be followed up with oncologist office and to continue IV iron replacement there. Patient is seen in collaboration with . Problems: Subjective 24 Hr Interval Summary Free Text/Dictation Patient is scheduled for CT-guided bone marrow biopsy today. Abdominal pain is resolved now. Exam/Review of Systems Vital Signs Vitals Vital Signs Date Time Temp Pulse Resp B/P Pulse Ox O2 Delivery O2 Flow Rate FiO2 11/03/17 07:42 99.6 102 18 134/78 93 11/02/17 03:15 Room Air 11/01/17 05:58 2.0 Intake and Output 11/02/17 11/02/17 11/03/17 15:00 23:00 07:00 Intake Total 1150 ml 360 ml Balance 1150 ml 360 ml Exam General: Morbidly obese male not in any acute distress . HEENT: Normocephalic, Atraumatic, No laceration or hematoma; Eyes: PEERL, Conjunctiva clear, Anicteric sclera Neck: Supple without any lymphadenopathy, nontender, no JVD, no carotid bruits, trachea midline, no thyromegaly Cardiac: S1, S2 auscultated, regular rhythm and rate, no mumurs or gallop Pulmonary: Normal respiratory effort. Chest clear to auscultation bilaterally, no adventitious breath sounds GI: Abdomen obese to inspection. With mild tenderness to left sided abdominal area mostly with coughing and moving. Otherwise soft, non tender, non- distended, no masses, no rebound tenderness or guarding. Bowel sounds active on all four quadrants Genitourinary: Deferred Extremities: No cyanosis, clubbing, or edema. Pulses [2+] bilaterally. Full ROM on all four extremities. No focal weakness appreciated. Neurologic: Alert to person, place, time, and situation. Affect appropriate, intact sensation. Skin: Clean,dry, and intact. No ecchymosis, no rashes, or lesions Results Result Diagram: 11/03/17 0503 11/03/17 0503 Results 24 hrs Laboratory Tests Test 11/02/17 16:15 11/02/17 23:38 11/03/17 05:03 Hemoglobin 7.6 L 7.7 L 8.0 L Hematocrit 26.9 L 26.9 L 28.8 L White Blood Count 11.0 H Red Blood Count 4.11 L Mean Corpuscular Volume 70.1 L Mean Corpuscular Hemoglobin 19.5 L Mean Corpuscular Hemoglobin Concent 27.8 L Red Cell Distribution Width 23.3 H Platelet Count 240 Mean Platelet Volume 10.5 H Neutrophils % 58.3 Lymphocytes % 26.9 Monocytes % 13.6 H Eosinophils % 0.4 Basophils % 0.2 Nucleated Red Blood Cells % 1.5 H Neutrophils # 6.4 Lymphocytes # 3.0 H Monocytes # 1.5 H Eosinophils # 0.0 Basophils # 0.0 Nucleated Red Blood Cells # 0.2 H Prothrombin Time 14.6 Prothrombin Time Ratio 1.1 INR International Normalized Ratio 1.12 Activated Partial Thromboplast Time 26.8 Sodium Level 139 Potassium Level 3.8 Chloride Level 101 Carbon Dioxide Level 30 Anion Gap 12 Blood Urea Nitrogen 9 Creatinine 1.00 Glucose Level 96 Calcium Level 8.8 Medications Medications Current Medications Ondansetron HCl (Zofran Inj) 4 mg Q6H PRN IV NAUSEA AND/OR VOMITING Last administered on 11/02/17 08:30; Admin Dose 4 MG; Start 11/01/17 at 06:00 Acetaminophen (Tylenol Tab) 650 mg Q6H PRN PO PAIN LEVEL 1-3 OR FEVER Last administered on 11/02/17 20:56; Admin Dose 650 MG; Start 11/01/17 at 06:00 Pantoprazole 40 mg 40 mg Q12 IV Last administered on 11/03/17 08:36; Admin Dose 40 MG; Start 11/01/17 at 09:00 Ferric Sodium Gluconate Complex/ Sodium Chloride (Ferrlecit/NS) 110 ml @ 110 mls/hr Q24H IVPB Last administered on 11/02/17 14:32; Admin Dose 110 MLS/HR; Start 11/01/17 at 12:30; Stop 11/05/17 at 13:29 Metoclopramide HCl (Reglan) 10 mg Q6 IV Last administered on 11/03/17 05:21; Admin Dose 10 MG; Start 11/01/17 at 19:00 Morphine Sulfate (morphine) 4 mg Q4H PRN IV SEVERE PAIN LEVEL 7-10 Last administered on 11/03/17 07:43; Admin Dose 4 MG; Start 11/01/17 at 20:00 Acetaminophen/ Hydrocodone Bitart ([place] (10/325)) 1 tab Q6H PRN PO PAIN Last administered on 11/02/17 00:14; Admin Dose 1 TAB; Start 11/01/17 at 20:30 Guaifenesin/ Codeine Phosphate (Robitussin Ac Liquid Cup) 10 ml Q4H PRN PO COUGH Last administered on 11/02/17 23:47; Admin Dose 10 ML; Start 11/01/17 at 20:30 HECTOR BEHT NP Nov 03, 2017 10:59
[2017-11-03] MEDS ORDERED: MIDAZOLAM 1 MG/ML 2 ML INJ ONE ×5 (11:14→12:00)
[2017-11-03] MEDS ORDERED: ONDANSETRON 4 MG INJ ONE (11:15)
[2017-11-03] MEDS ORDERED: FENTAnyl 50 MCG/ML VIAL ONE ×2 (11:15→12:00)
[2017-11-03] MEDS ORDERED: DIPHENHYDRAMINE 50 MG INJ IV PRN (11:30)
[2017-11-03] MEDS ORDERED: METOCLOPRAMIDE 10 MG INJ IV PRN (11:30)
[2017-11-03] MEDS ORDERED: ALBUTEROL 0.083% (NEB) 2.5 MG/3 ML AMP HHN PRN (11:30)
[2017-11-03] MEDS ORDERED: OXYCODONE/ACETAMINOPHEN (5/325) TAB PO PRN ×2 (11:30)
[2017-11-03] MEDS ORDERED: FENTAnyl 50 MCG/ML VIAL IV PRN ×2 (11:30)
[2017-11-03] MEDS ORDERED: LIDOCAINE 1% (MDV) 20 ML INJ ONE (11:52)
--- NOTE | 2017-11-03 12:29 | PN ---
Date/Time of Note Date/Time of Note DATE: 11/03/17 TIME: 12:08 Assessment/Plan VTE Prophylaxis VTE Prophylaxis Intervention: ambulation Lines/Catheters IV C[facility]ter Type (from [facility]): Saline Lock Urinary Cath still in place: No Assessment/Plan Chief Complaint/Hosp Course Assessment: Iron deficiency anemia S/p blood transfusion X3 History of alcohol abuse Obesity Steatosis Status post EGD Small varices Severe erosive esophagitis FOBT-negative Plan: Continue Protonix and Reglan Regular diet Followed by grant manager Monitor H&H transfuse as necessary for hemoglobin less than 7.5 Alcohol cessation and weight loss discussed Patient seen in collaboration with Dr. Tai Subjective: Patient reports moderate pain in the left flank requiring analgesic every 3 hours. Patient had bright red blood with stool today and yesterday , possibly due to hemorrhoids aggravated with frequent coughing. Today's hemoglobin is 8.0. Patient went for CT-guided bone marrow biopsy today and has been n.p.o. for the procedure since midnight. Abdominal CT shows hepatomegaly and steatosis. Now on regular diet. Review results of bone marrow biopsy. PHYSICAL EXAMINATION: GENERAL: Well developed, obese, alert & oriented x 3, in no acute distress SKIN: No lesions, no stigmata chronic liver disease, no evidence of bleeding diathesis LYMPHATIC: No palpable lymphadenopathy. HEAD: Normocephalic, atraumatic, no tenderness. EYES: Pupils equal reactive to light and accommodation, full extraocular movements, sclera clear, non-icteric, no discharge. EARS/NOSE AND THROAT: Ears normal, nose normal, oropharynx normal, oral membranes well hydrated without lesions. NECK: Supple, no masses, thyroid normal, JVP within normal limits, carotids normal without bruits. CHEST: Inspection within normal limits. CARDIOVASCULAR: Heart: Regular rate and rhythm, no murmurs, gallops or rubs. Peripheral pulses present within normal limits, no cyanosis, clubbing or edemas. No pulsatile abdominal mass RESPIRATORY: Lungs clear to auscultation and percussion, no wheezing, no rubs GASTROINTESTINAL AND LIVER: Abdomen: Soft, obese, non tenderness, non-distended , no hernias, no masses, no organomegaly, no ascites, no guarding, no rebound tenderness, normoactive bowel sounds. Rectal: Deferred. GENITOURINARY: Male genitalia within normal limits. EXTREMITIES: No cyanosis, clubbing or edema. MUSCULOSKELETAL: Left flank back tenderness on palpation Problems: Exam/Review of Systems Vital Signs Vitals Vital Signs Date Time Temp Pulse Resp B/P Pulse Ox O2 Delivery O2 Flow Rate FiO2 11/03/17 11:07 99.8 11/03/17 07:42 102 18 134/78 93 11/02/17 03:15 Room Air 11/01/17 05:58 2.0 Intake and Output 11/02/17 11/02/17 11/03/17 15:00 23:00 07:00 Intake Total 1150 ml 360 ml Balance 1150 ml 360 ml Results Result Diagram: 11/03/17 0503 11/03/17 0503 Results 24 hrs Laboratory Tests Test 11/02/17 16:15 11/02/17 23:38 11/03/17 05:03 Hemoglobin 7.6 L 7.7 L 8.0 L Hematocrit 26.9 L 26.9 L 28.8 L White Blood Count 11.0 H Red Blood Count 4.11 L Mean Corpuscular Volume 70.1 L Mean Corpuscular Hemoglobin 19.5 L Mean Corpuscular Hemoglobin Concent 27.8 L Red Cell Distribution Width 23.3 H Platelet Count 240 Mean Platelet Volume 10.5 H Neutrophils % 58.3 Lymphocytes % 26.9 Monocytes % 13.6 H Eosinophils % 0.4 Basophils % 0.2 Nucleated Red Blood Cells % 1.5 H Neutrophils # 6.4 Lymphocytes # 3.0 H Monocytes # 1.5 H Eosinophils # 0.0 Basophils # 0.0 Nucleated Red Blood Cells # 0.2 H Prothrombin Time 14.6 Prothrombin Time Ratio 1.1 INR International Normalized Ratio 1.12 Activated Partial Thromboplast Time 26.8 Sodium Level 139 Potassium Level 3.8 Chloride Level 101 Carbon Dioxide Level 30 Anion Gap 12 Blood Urea Nitrogen 9 Creatinine 1.00 Glucose Level 96 Calcium Level 8.8 Medications Medications Current Medications Ondansetron HCl (Zofran Inj) 4 mg Q6H PRN IV NAUSEA AND/OR VOMITING Last administered on 11/02/17 08:30; Admin Dose 4 MG; Start 11/01/17 at 06:00 Acetaminophen (Tylenol Tab) 650 mg Q6H PRN PO PAIN LEVEL 1-3 OR FEVER Last administered on 11/02/17 20:56; Admin Dose 650 MG; Start 11/01/17 at 06:00 Pantoprazole 40 mg 40 mg Q12 IV Last administered on 11/03/17 08:36; Admin Dose 40 MG; Start 11/01/17 at 09:00 Ferric Sodium Gluconate Complex/ Sodium Chloride (Ferrlecit/NS) 110 ml @ 110 mls/hr Q24H IVPB Last administered on 11/02/17 14:32; Admin Dose 110 MLS/HR; Start 11/01/17 at 12:30; Stop 11/05/17 at 13:29 Metoclopramide HCl (Reglan) 10 mg Q6 IV Last administered on 11/03/17 05:21; Admin Dose 10 MG; Start 11/01/17 at 19:00 Morphine Sulfate (morphine) 4 mg Q4H PRN IV SEVERE PAIN LEVEL 7-10 Last administered on 11/03/17 07:43; Admin Dose 4 MG; Start 11/01/17 at 20:00 Acetaminophen/ Hydrocodone Bitart ([place] (10/325)) 1 tab Q6H PRN PO PAIN Last administered on 11/02/17 00:14; Admin Dose 1 TAB; Start 11/01/17 at 20:30 Guaifenesin/ Codeine Phosphate (Robitussin Ac Liquid Cup) 10 ml Q4H PRN PO COUGH Last administered on 11/02/17 23:47; Admin Dose 10 ML; Start 11/01/17 at 20:30 PETER BOLANOS NP Nov 03, 2017 12:18
[2017-11-03] MEDS: SOD FERRIC GLUC COMPLX 125 MG in SOD CHLORIDE 0.9% 100 ML IVPB SCH ×2 (12:30→14:39)
--- NOTE | 2017-11-03 12:55 | RADRPT ---
PROCEDURE: CT guided bone marrow aspiration and left iliac bone biopsy. CLINICAL INDICATION: History of pancytopenia. TECHNIQUE: Informed consent was obtained. The procedure, risks, benefits, complications and alternatives were e xplained to the patient. Risks including bleeding and infection were explained. The patient understo od and was willing to proceed. A procedural pause was performed. The patient's name, date of , and procedure to be performed were verified. One or more of the following dose reduction techni ques were used: Automated exposure control, adjustment of the mA and/or kV according to patient size , use of iterative reconstruction technique. DICOM images are available. Using local anesthetic, sterile technique and CT guidance, an 11-gauge On Control bone biopsy needle was advanced into the left iliac bone via a posterior approach. Bone marrow aspiration was perform ed yielding approximately 10 ml. The bone biopsy needle was then advanced an additional 4 cm using the power drill device and tissue was obtained. Adequate tissue was obtained according to the patho logist present during the procedure. The needle was removed. A postprocedural scan was performed. A dressing was applied. The patient tolerated procedure well. COMPARISON: None. FINDINGS: Initial images demonstrate the tip of the needle at the posterior margin of the left iliac bone. Baumann bsequent images demonstrate the needle within the bone. Post biopsy images demonstrate no immediate complication. IMPRESSION: 1. Successful CT guided bone marrow aspiration and biopsy. RPTAT: QQ .Tejinder Blandon MD, Date Time Electronically viewed and signed by .Tejinder Blandon MD, MD on 11/03/2017 12:54 .R/
[2017-11-03] MEDS: FENTAnyl 50 MCG/ML VIAL IV PRN ×2 (13:02→13:17)
[2017-11-03] MEDS: GUAIFENESIN/CODEINE 5ML CUP PO PRN ×2 (15:57→23:59)
[2017-11-03] MEDS: HYDROCODONE/APAP (10/325) TAB PO PRN (20:33)
[2017-11-04 02:00] VITALS: BP 138/71; RESP 20
[2017-11-04] MEDS: HYDROCODONE/APAP (10/325) TAB PO PRN ×2 (03:03→20:41)
[2017-11-04] MEDS: morphine 2 MG INJ IV PRN ×5 (04:33→21:47)
[2017-11-04] MEDS: METOCLOPRAMIDE 10 MG INJ IV SCH ×4 (06:01→23:35)
[2017-11-04 06:30] LABS: ABNORMAL IP MESSAGE 1; BASOPHILS % 0.1 % (0.0-2.0); EOSINOPHILS # 0.2 10^3/ul (0.0-0.5); EOSINOPHILS % 1.7 % (0.0-7.0); HEMATOCRIT 29.2 % (42.0-52.0); LYMPHOCYTES # 3.4 10^3/ul (0.8-2.9); LYMPHOCYTES % 35.9 % (15.0-51.0); MEAN CORPUSCULAR HEMOGLOBIN 19.3 pg (29.0-33.0); MEAN CORPUSCULAR HGB CONC 27.4 g/dl (32.0-37.0); MEAN CORPUSCULAR VOLUME 70.4 fl (82.0-101.0); MEAN PLATELET VOLUME 11.1 fl (7.4-10.4); MONOCYTE # 1.4 10^3/ul (0.3-0.9); MONOCYTES % 14.6 % (0.0-11.0); NEUTROPHIL # 4.5 10^3/ul (1.6-7.5); NEUTROPHILS % 47.4 % (39.0-77.0); NUCLEATED RED BLOOD CELLS # 0.1 10^3/ul (0.0-0.0); NUCLEATED RED BLOOD CELLS% 0.5 /100WBC (0.0-0.0); PLATELET COUNT 247 10^3/UL (140-415); POSITIVE DIFF @See below; RED BLOOD COUNT 4.15 10^6/ul (4.70-6.10); WHITE BLOOD COUNT 9.5 10^3/ul (4.8-10.8)
[2017-11-04 07:03] LABS: CALCIUM 8.9 mg/dl (8.4-10.2); CREATININE 0.96 mg/dl (0.61-1.24); POTASSIUM 3.9 mmol/L (3.5-5.1)
[2017-11-04 07:44] VITALS: BP 132/69; RESP 17
[2017-11-04] MEDS: PANTOPRAZOLE 40 MG INJ IV SCH ×2 (08:36→20:37)
--- NOTE | 2017-11-04 11:09 | RADRPT ---
PROCEDURE: XR Chest. CLINICAL INDICATION: Cough. TECHNIQUE: Two views. Frontal and lateral. COMPARISON: No prior study is available for comparison. FINDINGS: The lungs are clear. The heart size is normal. There is no pleural effusion. There is no pneumothorax. IMPRESSION: 1. Normal chest radiograph. RPTAT: QQ .Tejinder Blandon MD, MD Date Time Electronically viewed and signed by .Tejinder Blandon MD, MD on 11/04/2017 11:09 .R/
--- NOTE | 2017-11-04 11:32 | PN ---
Date/Time of Note Date/Time of Note DATE: 11/04/17 TIME: 11:24 Assessment/Plan VTE Prophylaxis VTE Prophylaxis Intervention: ambulation Lines/Catheters IV C[facility]ter Type (from [facility]): Saline Lock Urinary Cath still in place: No Assessment/Plan Chief Complaint/Hosp Course 1. Acute iron deficient anemia requiring multiple blood transfusion. Other contributing factors of anemia could be erosive esophagitis and patient's history of alcohol abuse. Status post 3 units PRBC with H&H 8.0/28.8. -Negative stool OB. Status post endoscopy with erosive esophagitis. -Hematology evaluation greatly appreciated. Status post CT-guided bone marrow biopsy -follow-up reports. -Patient also had a recent colonoscopy done at [facility] which was negative per patient. I have requested to get a copy of this. 2. Severe erosive esophagitis. -On PPI and Reglan. -Follow-up EGD pathology report to rule out Jeane esophagitis. 3. Morbid obesity. BMI 53.7. -Weight reduction advised. 4. Hepatic steatosis -Lifestyle changes advised. 5. Alcohol abuse. -Cessation advised. 6. Leukocytosis, mild. Likely secondary to esophagitis. -We will monitor. No need for antibiotics at this time. Prophylaxis: SCDs/PPI. Follow-up with bone marrow biopsy findings. Alternatively, patient can be followed up with oncologist office and to continue IV iron replacement there. I will have case management work with his insurance for getting an authorization to see 's outpatient clinic to get IV iron. Plan of care updated with patient's mother and in agreement. Patient is seen in collaboration with Dr. Bryan Problems: Subjective 24 Hr Interval Summary Free Text/Dictation Patient is doing well. He denied any bleeding episodes to me. Exam/Review of Systems Vital Signs Vitals Vital Signs Date Time Temp Pulse Resp B/P Pulse Ox O2 Delivery O2 Flow Rate FiO2 11/04/17 07:44 98.9 80 17 132/69 95 11/03/17 14:37 Room Air 11/01/17 05:58 2.0 Intake and Output 11/03/17 11/03/17 11/04/17 15:00 23:00 07:00 Intake Total 1110 ml 1700 ml Output Total 1400 ml Balance 1110 ml 300 ml Exam General: Morbidly obese male not in any acute distress . HEENT: Normocephalic, Atraumatic, No laceration or hematoma; Eyes: PEERL, Conjunctiva clear, Anicteric sclera Neck: Supple without any lymphadenopathy, nontender, no JVD, no carotid bruits, trachea midline, no thyromegaly Cardiac: S1, S2 auscultated, regular rhythm and rate, no mumurs or gallop Pulmonary: Normal respiratory effort. Chest clear to auscultation bilaterally, no adventitious breath sounds GI: Abdomen obese to inspection. With mild tenderness to left sided abdominal area mostly with coughing and moving. Otherwise soft, non tender, non- distended, no masses, no rebound tenderness or guarding. Bowel sounds active on all four quadrants Genitourinary: Deferred Extremities: No cyanosis, clubbing, or edema. Pulses [2+] bilaterally. Full ROM on all four extremities. No focal weakness appreciated. Neurologic: Alert to person, place, time, and situation. Affect appropriate, intact sensation. Skin: Clean,dry, and intact. No ecchymosis, no rashes, or lesions Results Result Diagram: 11/04/17 0533 11/04/17 0533 Results 24 hrs Laboratory Tests Test 11/04/17 05:33 11/04/17 06:46 White Blood Count 9.5 Red Blood Count 4.15 L Hemoglobin 8.0 L Hematocrit 29.2 L Mean Corpuscular Volume 70.4 L Mean Corpuscular Hemoglobin 19.3 L Mean Corpuscular Hemoglobin Concent 27.4 L Red Cell Distribution Width 24.0 H Platelet Count 247 Mean Platelet Volume 11.1 H Neutrophils % 47.4 Lymphocytes % 35.9 Monocytes % 14.6 H Eosinophils % 1.7 Basophils % 0.1 Nucleated Red Blood Cells % 0.5 H Neutrophils # 4.5 Lymphocytes # 3.4 H Monocytes # 1.4 H Eosinophils # 0.2 Basophils # 0.0 Nucleated Red Blood Cells # 0.1 H Sodium Level 141 Potassium Level 3.9 Chloride Level 104 Carbon Dioxide Level 28 Anion Gap 13 Blood Urea Nitrogen 14 Creatinine 0.96 Glucose Level 99 Calcium Level 8.9 Lab Scanned Report BLOOD TRANSFUSION Medications Medications Current Medications Ondansetron HCl (Zofran Inj) 4 mg Q6H PRN IV NAUSEA AND/OR VOMITING Last administered on 11/02/17t 08:30; Admin Dose 4 MG; Start 11/01/17 at 06:00 Acetaminophen (Tylenol Tab) 650 mg Q6H PRN PO PAIN LEVEL 1-3 OR FEVER Last administered on 11/02/17 20:56; Admin Dose 650 MG; Start 11/01/17 at 06:00 Pantoprazole 40 mg 40 mg Q12 IV Last administered on 11/04/17 08:36; Admin Dose 40 MG; Start 11/01/17 at 09:00 Ferric Sodium Gluconate Complex/ Sodium Chloride (Ferrlecit/NS) 110 ml @ 110 mls/hr Q24H IVPB Last administered on 11/03/17 14:39; Admin Dose 110 MLS/HR; Start 11/01/17 at 12:30; Stop 11/05/17 at 13:29 Metoclopramide HCl (Reglan) 10 mg Q6 IV Last administered on 11/04/17 06:01; Admin Dose 10 MG; Start 11/01/17 at 19:00 Morphine Sulfate (morphine) 4 mg Q4H PRN IV SEVERE PAIN LEVEL 7-10 Last administered on 11/04/17 08:41; Admin Dose 4 MG; Start 11/01/17 at 20:00 Acetaminophen/ Hydrocodone Bitart ([place] (10/325)) 1 tab Q6H PRN PO PAIN Last administered on 11/04/17 03:03; Admin Dose 1 TAB; Start 11/01/17 at 20:30 Guaifenesin/ Codeine Phosphate (Robitussin Ac Liquid Cup) 10 ml Q4H PRN PO COUGH Last administered on 11/03/17 23:59; Admin Dose 10 ML; Start 11/01/17 at 20:30 HECTOR BETH NP Nov 04, 2017 11:32
[2017-11-04] MEDS: SOD FERRIC GLUC COMPLX 125 MG in SOD CHLORIDE 0.9% 100 ML IVPB SCH (12:45)
--- NOTE | 2017-11-04 12:55 | PN ---
Date/Time of Note Date/Time of Note DATE: 11/04/17 TIME: 12:49 Assessment/Plan VTE Prophylaxis VTE Prophylaxis Intervention: SCD's Lines/Catheters IV Catheter Type (from [facility]): Saline Lock Urinary Cath still in place: No Assessment/Plan Chief Complaint/Hosp Course Assessment: Severe TODD anemia- Patient notes recent colonoscopy negative EGD 11/01/17 Impression: Severe erosive esophagitis No significant esophageal varices Otherwise normal EGD History of alcohol abuse- discussed cessation Obesity- discussed weight loss Plan: Continue Protonix and Reglan Regular diet Followed by material control manager Monitor H&H transfuse as necessary for hemoglobin less than 7.5 Patient seen in collaboration with Dr. Tai Subjective: Course reviewed with nursing staff Patient interviewed and examined All labs, imaging and other results reviewed Bone marrow bx pending- possible plan for patient to f/u with onc/hemo as out- pt for IV iron transfusions. Currently doing well, discussed results of CT abd/pelvis, discussed in depth need to stop drinking ETOH and weight loss, patient verbalized understanding. Hgb stable will continue to monitor need for transfusion. PHYSICAL EXAMINATION: GENERAL: Well developed, obese, alert & oriented x 3, in no acute distress SKIN: No lesions, no stigmata chronic liver disease, no evidence of bleeding diathesis LYMPHATIC: No palpable lymphadenopathy. HEAD: Normocephalic, atraumatic, no tenderness. EYES: Pupils equal reactive to light and accommodation, full extraocular movements, sclera clear, non-icteric, no discharge. EARS/NOSE AND THROAT: Ears normal, nose normal, oropharynx normal, oral membranes well hydrated without lesions. NECK: Supple, no masses, thyroid normal, JVP within normal limits, carotids normal without bruits. CHEST: Inspection within normal limits. CARDIOVASCULAR: Heart: Regular rate and rhythm, no murmurs, gallops or rubs. Peripheral pulses present within normal limits, no cyanosis, clubbing or edemas. No pulsatile abdominal mass RESPIRATORY: Lungs clear to auscultation and percussion, no wheezing, no rubs GASTROINTESTINAL AND LIVER: Abdomen: Soft, obese, non tenderness, non-distended , no hernias, no masses, no organomegaly, no ascites, no guarding, no rebound tenderness, normoactive bowel sounds. Rectal: Deferred. GENITOURINARY: Male genitalia within normal limits. EXTREMITIES: No cyanosis, clubbing or edema. MUSCULOSKELETAL: Left flank back tenderness on palpation Problems: Exam/Review of Systems Vital Signs Vitals Vital Signs Date Time Temp Pulse Resp B/P Pulse Ox O2 Delivery O2 Flow Rate FiO2 11/04/17 07:44 98.9 80 17 132/69 95 11/03/17 14:37 Room Air 11/01/17 05:58 2.0 Intake and Output 11/03/17 11/03/17 11/04/17 15:00 23:00 07:00 Intake Total 1110 ml 1700 ml Output Total 1400 ml Balance 1110 ml 300 ml Results Result Diagram: 11/04/17 0533 11/04/17 0533 Results 24 hrs Laboratory Tests Test 11/04/17 05:33 11/04/17 06:46 White Blood Count 9.5 Red Blood Count 4.15 L Hemoglobin 8.0 L Hematocrit 29.2 L Mean Corpuscular Volume 70.4 L Mean Corpuscular Hemoglobin 19.3 L Mean Corpuscular Hemoglobin Concent 27.4 L Red Cell Distribution Width 24.0 H Platelet Count 247 Mean Platelet Volume 11.1 H Neutrophils % 47.4 Lymphocytes % 35.9 Monocytes % 14.6 H Eosinophils % 1.7 Basophils % 0.1 Nucleated Red Blood Cells % 0.5 H Neutrophils # 4.5 Lymphocytes # 3.4 H Monocytes # 1.4 H Eosinophils # 0.2 Basophils # 0.0 Nucleated Red Blood Cells # 0.1 H Sodium Level 141 Potassium Level 3.9 Chloride Level 104 Carbon Dioxide Level 28 Anion Gap 13 Blood Urea Nitrogen 14 Creatinine 0.96 Glucose Level 99 Calcium Level 8.9 Lab Scanned Report BLOOD TRANSFUSION Medications Medications Current Medications Ondansetron HCl (Zofran Inj) 4 mg Q6H PRN IV NAUSEA AND/OR VOMITING Last administered on 11/02/17 08:30; Admin Dose 4 MG; Start 11/01/17 at 06:00 Acetaminophen (Tylenol Tab) 650 mg Q6H PRN PO PAIN LEVEL 1-3 OR FEVER Last administered on 11/02/17 20:56; Admin Dose 650 MG; Start 11/01/17 at 06:00 Pantoprazole 40 mg 40 mg Q12 IV Last administered on 11/04/17 08:36; Admin Dose 40 MG; Start 11/01/17 at 09:00 Ferric Sodium Gluconate Complex/ Sodium Chloride (Ferrlecit/NS) 110 ml @ 110 mls/hr Q24H IVPB Last administered on 11/04/17 12:45; Admin Dose 110 MLS/HR; Start 11/01/17 at 12:30; Stop 11/05/17 at 13:29 Metoclopramide HCl (Reglan) 10 mg Q6 IV Last administered on 11/04/17 12:16; Admin Dose 10 MG; Start 11/01/17 at 19:00 Morphine Sulfate (morphine) 4 mg Q4H PRN IV SEVERE PAIN LEVEL 7-10 Last administered on 11/04/17 12:46; Admin Dose 4 MG; Start 11/01/17 at 20:00 Acetaminophen/ Hydrocodone Bitart ([place] (10325)) 1 tab Q6H PRN PO PAIN Last administered on 11/04/17 03:03; Admin Dose 1 TAB; Start 11/01/17 at 20:30 Guaifenesin/ Codeine Phosphate (Robitussin Ac Liquid Cup) 10 ml Q4H PRN PO COUGH Last administered on 11/03/17 23:59; Admin Dose 10 ML; Start 11/01/17 at 20:30 EVANGELINA PRAKASH Nov 04, 2017 12:55
[2017-11-04 14:02] VITALS: BP 138/67; RESP 18
[2017-11-04 19:42] VITALS: BP 123/68; RESP 20
[2017-11-04] MEDS: GUAIFENESIN/CODEINE 5ML CUP PO PRN (23:35)
[2017-11-05] MEDS: morphine 2 MG INJ IV PRN ×2 (01:54→06:03)
[2017-11-05 02:07] VITALS: BP 119/70; RESP 18
[2017-11-05 05:58] LABS: ABNORMAL IP MESSAGE 1; BASOPHILS % 0.2 % (0.0-2.0); EOSINOPHILS # 0.2 10^3/ul (0.0-0.5); EOSINOPHILS % 2.1 % (0.0-7.0); HEMATOCRIT 28.4 % (42.0-52.0); HEMOGLOBIN 7.9 g/dl (14.0-18.0); LYMPHOCYTES % 36.7 % (15.0-51.0); MEAN CORPUSCULAR HEMOGLOBIN 20.2 pg (29.0-33.0); MEAN CORPUSCULAR HGB CONC 27.8 g/dl (32.0-37.0); MEAN CORPUSCULAR VOLUME 72.4 fl (82.0-101.0); MEAN PLATELET VOLUME 10.9 fl (7.4-10.4); MONOCYTES % 12.6 % (0.0-11.0); NEUTROPHIL # 3.9 10^3/ul (1.6-7.5); NUCLEATED RED BLOOD CELLS% 0.4 /100WBC (0.0-0.0); PLATELET COUNT 231 10^3/UL (140-415); POSITIVE DIFF @See below; RED BLOOD COUNT 3.92 10^6/ul (4.70-6.10); RED CELL DISTRIBUTION WIDTH 25.1 % (11.5-14.5); WHITE BLOOD COUNT 8.2 10^3/ul (4.8-10.8)
[2017-11-05] MEDS: METOCLOPRAMIDE 10 MG INJ IV SCH (06:02)
[2017-11-05 06:27] LABS: ALBUMIN 3.4 g/dl (3.3-4.9); ALBUMIN/GLOBULIN RATIO 0.91; BILIRUBIN,INDIRECT 0.3 mg/dl (0-1.1); BILIRUBIN,TOTAL 0.3 mg/dl (0.2-1.3); CALCIUM 8.9 mg/dl (8.4-10.2); CREATININE 0.91 mg/dl (0.61-1.24); POTASSIUM 3.6 mmol/L (3.5-5.1); TOTAL PROTEIN 7.1 g/dl (6.1-8.1)
[2017-11-05 08:14] VITALS: BP 126/58; RESP 18
[2017-11-05] MEDS: PANTOPRAZOLE 40 MG INJ IV SCH (08:34)
[2017-11-05] MEDS: GUAIFENESIN/CODEINE 5ML CUP PO PRN (08:53)
--- NOTE | 2017-11-05 09:21 | PDOCDIS ---
Discharge Instructions CONDITION Patient Condition: Stable HOME CARE INSTRUCTIONS: Diet Instructions: Reduced Calorie FOLLOW UP/APPOINTMENTS Follow-up Plan Follow-up with in 2weeks for bone marrow biopsy repirt and Iron infusion. [id number] [id number] Office Follow up with primary care physician in 1 week If you don't have one please let someone know, we can give you resources that may help you pick one. You may also call your insurance company to assign one to you. Review your medication list with your nurse before leaving and if you need new prescriptions please let your nurse know. I may have made changes to your home medications or given you new prescriptions, please let your primary doctor know as well. Stay compliant with your medications and report any side effects to your PCP or pharmacist. Return to the ER if you have any concerns and cannot reach your doctors or call your insurance company, they usually have a nurse that can help you. Call 911 or go to the nearest emergency room if experiencing loss of consciousness, dizziness, chest pain, shortness of breath, vomiting/abdominal pain, speech difficulties, motor weakness or any unusual symptoms. Other orders: Resume a low calorie diet. Daily exercise and weight reduction strongly recommended. Cessation of alcohol abuse. HECTOR BETH NP Nov 05, 2017 09:21
[2017-11-05] MEDS ORDERED: PANT40TA3 PO (09:23)
[2017-11-05] MEDS ORDERED: METO5TAB58 PO (09:23)
[2017-11-05] MEDS ORDERED: DOCU-144 PO (09:23)
[2017-11-05] MEDS ORDERED: FER325 PO (09:23)
--- NOTE | 2017-11-05 09:34 | DS ---
Date/Time of Note Date/Time of Note DATE: 11/05/17 TIME: 09:31 Discharge Summary Admission/Discharge Info Admit Date/Time Nov 01, 2017 at 03:43 Discharge Date/Time Discharge Diagnosis 1. Acute iron deficient anemia requiring multiple blood transfusion. Other contributing factors of anemia could be erosive esophagitis and patient's history of alcohol abuse. 2. Severe erosive esophagitis. 3. Morbid obesity. BMI 53.7. 4. Hepatic steatosis 5. Alcohol abuse. 6. Leukocytosis, mild. Likely secondary to esophagitis. Resolved. Patient Condition: Stable Consults , gastroenterology , hematology. Procedures 1. CT abdomen and pelvis. IMPRESSION: Hepatomegaly with diffuse hepatic steatosis. 2.Esophagogastroduodenoscopy Impression: Severe erosive esophagitis No significant esophageal varices Otherwise normal EGD 3.CT-guided bone marrow biopsy. Hospital Course This is a 27-year-old morbidly obese male with a medical history of alcohol abuse with binge drink 12-18 beers in a day, presented to the emergency room with abdominal pain and nonbilious vomiting. Patient was noted with a hemoglobin 6.8, hematocrit 25.4 with severe microcytic, hyperchromic indicis. Patient was admitted. Patient was transfused with 3 units PRBC with stable H&H 8.0 or above. He was continued on IV iron replacement. Patient also had endoscopy with the findings of erosive esophagitis. He was treated with Protonix and Reglan for GI recommendation. Patient did not have any acute GI bleed episodes in-house. He also had a reported negative colonoscopy last year. CT abdomen and pelvis revealed hepatomegaly with diffuse steatosis. Patient was counseled on weight reduction and cessation of alcohol abuse. He was tolerating diet and activities. During the course of hospitalization, he was also noted with leukocytosis which is most likely secondary to esophagitis. Patient did not have any signs of infection requiring antibiotics. His urine culture was showing lactobacillus-patient asymptomatic. Recommended PCP followup and repeat a UA. Patient was also evaluated by microphone operator. He had CT-guided bone marrow biopsy. Recommendation was to monitor patient in hematology office for IV iron replacement. As per case management, can see patient as outpatient and she can also discuss bone marrow biopsy findings at that time. There is no further inpatient workup indicated. At this time, patient is also feeling back to his baseline. His vital signs and labs remain stable. Patient is medically stable for discharge from consultants recommendations. Disposition: Home. Approximately 60 minutes was spent on coordinating the discharge on this patient. Patient was seen in collaboration with Dr. Bryan. Please not that I have discussed patient in detail regarding alcohol cessation and weight reduction upon discharge which patient verbalized and in agreement. He is also trying to get his insurance renewed with this open enrollment. I have also discussed patient's condition and outpatient management with his mom and sister who verbalized discharge instructions. Home Meds Active Scripts Docusate Sodium* (Colace*) 100 Mg Capsule, 100 MG PO BID, #60 CAP Prov:BETH,[employer] SALES REPRESENTATIVE 11/05/17 Ferrous Sulfate* (Ferrous Sulfate*) 325 Mg Tabec, 325 MG PO TID, #90 TAB Prov:BETH,HECTOR [employer] SALES REPRESENTATIVE 11/05/17 Pantoprazole* (Protonix*) 40 Mg Tablet.dr, 40 MG PO BID for 45 Days, #100 TAB Prov:BETH,HECTOR [employer] SALES REPRESENTATIVE 11/05/17 Metoclopramide* (Reglan*) 5 Mg Tablet, 10 MG PO AC MEALS, #90 TAB Prov:BETH,HECTOR [employer] SALES REPRESENTATIVE 11/05/17 Follow-up Plan Follow-up with in 2weeks for bone marrow biopsy repirt and Iron infusion. [id number] [id number] Office Follow up with primary care physician in 1 week If you don't have one please let someone know, we can give you resources that may help you pick one. You may also call your insurance company to assign one to you. Review your medication list with your nurse before leaving and if you need new prescriptions please let your nurse know. I may have made changes to your home medications or given you new prescriptions, please let your primary doctor know as well. Stay compliant with your medications and report any side effects to your PCP or pharmacist. Return to the ER if you have any concerns and cannot reach your doctors or call your insurance company, they usually have a nurse that can help you. Call 911 or go to the nearest emergency room if experiencing loss of consciousness, dizziness, chest pain, shortness of breath, vomiting/abdominal pain, speech difficulties, motor weakness or any unusual symptoms. Other orders: Resume a low calorie diet. Daily exercise and weight reduction strongly recommended. Cessation of alcohol abuse. Primary Care Provider Care Physician No Primary Pending Labs Laboratory Tests Test 11/05/17 04:22 White Blood Count 8.210^3/ul (4.8-10.8) Red Blood Count 3.9210^6/ul (4.70-6.10) Hemoglobin 7.9g/dl (14.0-18.0) Hematocrit 28.4% (42.0-52.0) Mean Corpuscular Volume 72.4fl (82.0-101.0) Mean Corpuscular Hemoglobin 20.2pg (29.0-33.0) Mean Corpuscular Hemoglobin Concent 27.8g/dl (32.0-37.0) Red Cell Distribution Width 25.1% (11.5-14.5) Platelet Count 14740^3/UL (140-415) Mean Platelet Volume 10.9fl (7.4-10.4) Neutrophils % 48.0% (39.0-77.0) Lymphocytes % 36.7% (15.0-51.0) Monocytes % 12.6% (0.0-11.0) Eosinophils % 2.1% (0.0-7.0) Basophils % 0.2% (0.0-2.0) Nucleated Red Blood Cells % 0.4/100WBC (0.0-0.0) Neutrophils # 3.910^3/ul (1.6-7.5) Lymphocytes # 3.010^3/ul (0.8-2.9) Monocytes # 1.010^3/ul (0.3-0.9) Eosinophils # 0.210^3/ul (0.0-0.5) Basophils # 0.010^3/ul (0.0-0.1) Nucleated Red Blood Cells # 0.010^3/ul (0.0-0.0) Sodium Level 141mmol/L (135-144) Potassium Level 3.6mmol/L (3.5-5.1) Chloride Level 104mmol/L (97-110) Carbon Dioxide Level 30mmol/L (21-31) Anion Gap 11 (8-16) Blood Urea Nitrogen 13mg/dl (7-20) Creatinine 0.91mg/dl (0.61-1.24) Glucose Level 93mg/dl (70-220) Calcium Level 8.9mg/dl (8.4-10.2) Total Bilirubin 0.3mg/dl (0.2-1.3) Direct Bilirubin 0.00mg/dl (0.00-0.20) Indirect Bilirubin 0.3mg/dl (0-1.1) Aspartate Amino Transf (AST/SGOT) 56IU/L (15-46) Alanine Aminotransferase (ALT/SGPT) 78IU/L (13-69) Alkaline Phosphatase 86IU/L (42-121) Total Protein 7.1g/dl (6.1-8.1) Albumin 3.4g/dl (3.3-4.9) Globulin 3.70g/dl (1.3-3.2) Albumin/Globulin Ratio 0.91 HECTOR BETH NP Nov 05, 2017 09:34
== END 2017-11-05 10:26 | disposition home or self-care (01) | DRG 812 ==
LOC: E/R 22:59 → PP2 11-01 03:43
PROVIDERS: ADMIT Internal Medicine; ATTEND Internal Medicine
PROC: 30233N1 Transfusion of Nonautologous Red Blood Cells into Peripheral Vein, Percutaneous Approach (ICD-10-PCS; 2017-11-01)
PROC: 0DJ08ZZ Inspection of Upper Intestinal Tract, Via Natural or Artificial Opening Endoscopic (ICD-10-PCS; principal; 2017-11-01 21:30)
PROC: 07DR3ZX Extraction of Iliac Bone Marrow, Percutaneous Approach, Diagnostic (ICD-10-PCS; 2017-11-03)
DX: D50.9 Iron deficiency anemia, unspecified (principal); K76.0 Fatty (change of) liver, not elsewhere classified; Z68.43 Body mass index [BMI] 50.0-59.9, adult; F10.20 Alcohol dependence, uncomplicated; K20.8 Other esophagitis; E66.01 Morbid (severe) obesity due to excess calories; D72.829 Elevated white blood cell count, unspecified
CPT/HCPCS: 36415; 36430; 71020; 74000; 74176; 74177; 77012; 80048; 80053; 81001; 82270; 82728; 83540; 83690; 83735; 84100; 85014; 85018; 85025; 85045; 85610; 85730; 86078; 86850; 86900; 86901; 86920; 87086; 88305; 88311; 88313; 90686; 96374; 96375; C9113; J1170; J1200; J2250; J2270; J2370; J2405; J2765; J2916; J3010; J7030; P9016; Q9967

== ENCOUNTER 2018-02-13 12:03 | Emergency (ER) | END 2018-02-13 15:00 | disposition home or self-care (01) ==

== ENCOUNTER 2018-04-02 17:23 | Emergency (ER) | END 2018-04-02 21:12 | disposition home or self-care (01) ==

== ENCOUNTER 2018-04-29 09:56 | Emergency (ER) | END 2018-04-29 12:46 | disposition home or self-care (01) ==

== ENCOUNTER 2018-08-24 17:00 | Emergency (ER) | END 2018-08-24 19:34 | disposition home or self-care (01) ==